=== PATIENT | male | born 1975 | race Two or more races ===

== ENCOUNTER 2024-04-29 23:04 | Inpatient (IN) | payer OTHER ==
[~2024-04-29] VITALS: Ht 193 cm; Wt 118.4 kg
[2024-04-29 23:59] LABS: APPEARANCE,URINE CLEAR (CLEAR); BILIRUBIN,URINE NEGATIVE (NEGATIVE); BLOOD, URINE TRACE-INTA Ery/uL (NEGATIVE); COLOR,URINE YELLOW (YELLOW); KETONES,URINE NEGATIVE (NEGATIVE); LEUKOCYTE ESTERASE ,URINE 1+ (NEGATIVE); NITRITE, URINE POSITIVE (NEGATIVE); PH,URINE 6.5 (5.0-8.0); PROTEIN,URINE NEGATIVE (NEGATIVE); UGLUCOSE NEGATIVE (NEGATIVE)
[2024-04-30 00:03] LABS: BASOPHILS % (AUTO) 0.4 % (0.0-2.0); EOSINOPHILS # (AUTO) 0.2 K/uL (0.0-0.7); EOSINOPHILS % (AUTO) 1.8 % (0.0-6.0); HEMATOCRIT 41 % (39-51); HEMOGLOBIN 13.7 g/dL (13.5-17.5); LYMPHOCYTES # (AUTO) 2.6 K/uL (0.8-4.8); LYMPHOCYTES % (AUTO) 22.4 % (20.0-44.0); MEAN CORPUSCULAR HEMOGLOBIN 31 PG (26.0-33.0); MEAN CORPUSCULAR HGB CONC 33 g/dl (31.0-36.0); MEAN CORPUSCULAR VOLUME 94 fL (80-96); MONOCYTES # (AUTO) 0.7 K/uL (0.1-1.30); MONOCYTES % (AUTO) 6.3 % (2.0-12.0); NEUTROPHILS # (AUTO) 7.9 K/uL (1.8-8.9); NEUTROPHILS % (AUTO) 69.1 % (43.0-81.0); PLATELET COUNT (AUTO) 248 K/uL (150-450); RED BLOOD CELL COUNT(AUTO) 4.36 MIL/uL (4.5-6.0); WHITE BLOOD COUNT (AUTO) 11.4 K/uL (4.3-11.0)
[2024-04-30 00:20] LABS: ADD URINE CULTURE YES; BACTERIA,URINE 2+ /HPF (None Seen); SQUAMOUS EPITHELIAL CELL,UR None Seen /HPF (None Seen); WBC,URINE 21-50 /HPF (0-3)
[2024-04-30 00:28] LABS: CALCIUM, SERUM 8.8 mg/dL (8.5-10.1); CREATININE 0.7 mg/dL (0.6-1.3); POTASSIUM 4.4 mmol/L (3.5-5.1)
[2024-04-30 00:40] LABS: ALBUMIN 3.2 g/dL (3.4-5.0); BILIRUBIN,TOTAL 0.5 mg/dL (0.2-1.0); TOTAL PROTEIN, SERUM 8.5 g/dL (6.4-8.2)
[2024-04-30 02:26] LABS: LACTIC ACID 6.6 mmol/L (0.4-2.0)
[2024-04-30] MEDS ORDERED: CEFTRIAXONE 1GM BAG (ER ONLY) 50 ML IV ONE (02:31)
[2024-04-30] MEDS: IV NS 0.9% 1,000 ML IV ONE ×2 (02:39→03:00)
[2024-04-30] MEDS: CEFTRIAXONE 1GM BAG (ER ONLY) 1 GM/50 ML PIGGYBACK IV ONE (02:39)
[2024-04-30] MEDS ORDERED: MAGNESIUM HYDROXIDE 30 ML UDC PO PRN ×2 (05:30→09:30)
[2024-04-30] MEDS ORDERED: ONDANSETRON HCL/PF 4 MG/2 ML VIAL IVP PRN (05:30)
[2024-04-30] MEDS ORDERED: Z GUARD REMEDY 4 OZ OINT TP PRN (05:30)
[2024-04-30] MEDS ORDERED: MAG HYDROX/AL HYDROX/SIMETH 30 ML UDC PO PRN (05:30)
[2024-04-30 05:40] LABS: BILIRUBIN,DIRECT 0.1 mg/dL (0.0-0.2)
[2024-04-30 05:53] LABS: LACTIC ACID REFLEX 0.4 mmol/L (0.4-1.9)
[2024-04-30] MEDS: IV NS 0.9% 1,000 ML IV PRN (06:56)
[2024-04-30 07:02] LABS: ALBUMIN 3.2 g/dL (3.4-5.0); CALCIUM, SERUM 8.7 mg/dL (8.5-10.1); CREATININE 0.8 mg/dL (0.6-1.3); MAGNESIUM 2.1 mg/dL (1.8-2.4); PHOSPHORUS 3.7 mg/dL (2.5-4.9); POTASSIUM 3.8 mmol/L (3.5-5.1)
[2024-04-30 07:05] LABS: BASOPHILS # (AUTO) 0.1 K/uL (0.0-0.2); BASOPHILS % (AUTO) 0.7 % (0.0-2.0); EOSINOPHILS # (AUTO) 0.3 K/uL (0.0-0.7); EOSINOPHILS % (AUTO) 2.8 % (0.0-6.0); HEMATOCRIT 39 % (39-51); HEMOGLOBIN 13.2 g/dL (13.5-17.5); LYMPHOCYTES # (AUTO) 1.9 K/uL (0.8-4.8); LYMPHOCYTES % (AUTO) 17.8 % (20.0-44.0); MEAN CORPUSCULAR HEMOGLOBIN 31 PG (26.0-33.0); MEAN CORPUSCULAR HGB CONC 34 g/dl (31.0-36.0); MEAN CORPUSCULAR VOLUME 91 fL (80-96); MONOCYTES # (AUTO) 0.8 K/uL (0.1-1.30); MONOCYTES % (AUTO) 7.6 % (2.0-12.0); NEUTROPHILS # (AUTO) 7.6 K/uL (1.8-8.9); NEUTROPHILS % (AUTO) 71.1 % (43.0-81.0); PLATELET COUNT (AUTO) 287 K/uL (150-450); RED BLOOD CELL COUNT(AUTO) 4.24 MIL/uL (4.5-6.0); RED CELL DISTRIBUTION WIDTH 13.8 % (11.5-15.0); WHITE BLOOD COUNT (AUTO) 10.7 K/uL (4.3-11.0)
[2024-04-30 08:00] VITALS: BP 98/55; TEMP 98; O2SAT 95
[2024-04-30] MEDS: PANTOPRAZOLE 40 MG TABLET.DR PO SCH (08:53)
[2024-04-30] MEDS: ACETAMINOPHEN 325 MG TABLET PO PRN (08:54)
[2024-04-30] MEDS ORDERED: ACET325T53 PO (08:55)
[2024-04-30] MEDS ORDERED: HYDR-4303 PO (08:55)
[2024-04-30] MEDS ORDERED: TAMS-12 PO (08:55)
[2024-04-30] MEDS ORDERED: LORA10TA7 PO (08:55)
[2024-04-30] MEDS ORDERED: SENN8.6T19 PO (08:55)
[2024-04-30] MEDS ORDERED: BISA10SU11 RC (08:55)
[2024-04-30] MEDS ORDERED: ACET-637 PO (08:55)
[2024-04-30] MEDS ORDERED: PREG-57 PO (08:55)
[2024-04-30] MEDS ORDERED: NA P133E RC (08:55)
[2024-04-30] MEDS ORDERED: QUET100T PO (08:55)
[2024-04-30] MEDS ORDERED: MAGN400O6 PO (08:55)
[2024-04-30] MEDS ORDERED: TIZA4TAB5 PO (08:55)
[2024-04-30] MEDS ORDERED: CEFTRIAXONE 1 G in IV D5W 50 ML IV SCH (09:00)
[2024-04-30] MEDS: CEFTRIAXONE 2 G in IV D5W 100 ML IV SCH (09:19)
[2024-04-30] MEDS ORDERED: ACETAMINOPHEN 325 MG TABLET PO PRN (09:30)
[2024-04-30] MEDS ORDERED: ACETAMINOPHEN ES 500 MG TABLET PO PRN (09:30)
[2024-04-30] MEDS ORDERED: BISACODYL SUPP (10 MG) 10 MG/SUPP.RECT SUPP.RECT RC PRN (09:30)
[2024-04-30] MEDS ORDERED: NA PHOS,M-B/NA PHOS,DI-BA 1 EA ENEMA RC PRN (09:30)
[2024-04-30 11:10] LABS: THYROID STIMULATING HORMONE 0.84 uIU/mL (0.358-3.74)
[2024-04-30] MEDS ORDERED: CT SWABBABLE VALVE TRANS SET 1 EA INFUS.SET MC ONE (11:34)
[2024-04-30] MEDS ORDERED: IOHEXOL-350 100 ML VIAL IV ONE (11:34)
[2024-04-30] MEDS ORDERED: IV NS 0.9% 250 ML IV ONE (11:35)
[2024-04-30] MEDS: TIZANIDINE HCL 4 MG TABLET PO SCH (13:57)
[2024-04-30 16:13] VITALS: BP 122/81; TEMP 98.1; O2SAT 93
[2024-04-30 20:24] VITALS: BP 105/93; TEMP 98.4; O2SAT 100
[2024-04-30] MEDS: SENNOSIDES 8.6 MG TABLET PO SCH (21:28)
[2024-04-30] MEDS: ENOXAPARIN SODIUM 40 MG/0.4 ML DISP.SYRIN SQ SCH (22:41)
[2024-05-01 07:06] LABS: BASOPHILS # (AUTO) 0.1 K/uL (0.0-0.2); BASOPHILS % (AUTO) 0.6 % (0.0-2.0); EOSINOPHILS # (AUTO) 0.4 K/uL (0.0-0.7); EOSINOPHILS % (AUTO) 3.6 % (0.0-6.0); HEMATOCRIT 39 % (39-51); HEMOGLOBIN 12.9 g/dL (13.5-17.5); LYMPHOCYTES # (AUTO) 1.9 K/uL (0.8-4.8); MEAN CORPUSCULAR HEMOGLOBIN 31 PG (26.0-33.0); MEAN CORPUSCULAR HGB CONC 34 g/dl (31.0-36.0); MEAN CORPUSCULAR VOLUME 91 fL (80-96); MONOCYTES # (AUTO) 0.6 K/uL (0.1-1.30); MONOCYTES % (AUTO) 5.6 % (2.0-12.0); NEUTROPHILS # (AUTO) 7.5 K/uL (1.8-8.9); NEUTROPHILS % (AUTO) 72.2 % (43.0-81.0); PLATELET COUNT (AUTO) 297 K/uL (150-450); RED BLOOD CELL COUNT(AUTO) 4.24 MIL/uL (4.5-6.0); RED CELL DISTRIBUTION WIDTH 13.7 % (11.5-15.0); WHITE BLOOD COUNT (AUTO) 10.4 K/uL (4.3-11.0)
[2024-05-01 07:30] VITALS: BP 148/113; TEMP 98.1; O2SAT 96
[2024-05-01 07:31] LABS: CALCIUM, SERUM 9.1 mg/dL (8.5-10.1); CREATININE 0.7 mg/dL (0.6-1.3); PHOSPHORUS 3.3 mg/dL (2.5-4.9); POTASSIUM 3.7 mmol/L (3.5-5.1)
[2024-05-01 08:11] LABS: FOLIC ACID 11.9 ng/mL (>3.0)
[2024-05-01] MEDS: TAMSULOSIN 0.4 MG CAP.SR.24H PO SCH (08:26)
[2024-05-01] MEDS: LORATADINE 10 MG TABLET PO SCH (08:26)
[2024-05-01 16:00] VITALS: BP 130/81; TEMP 98.2; O2SAT 95
[2024-05-01 21:45] VITALS: BP 137/88; TEMP 98.6; O2SAT 94
[2024-05-02 06:24] LABS: BASOPHILS # (AUTO) 0.1 K/uL (0.0-0.2); BASOPHILS % (AUTO) 0.7 % (0.0-2.0); EOSINOPHILS # (AUTO) 0.5 K/uL (0.0-0.7); EOSINOPHILS % (AUTO) 6.6 % (0.0-6.0); HEMATOCRIT 37 % (39-51); HEMOGLOBIN 12.6 g/dL (13.5-17.5); LYMPHOCYTES # (AUTO) 1.8 K/uL (0.8-4.8); LYMPHOCYTES % (AUTO) 25.7 % (20.0-44.0); MEAN CORPUSCULAR HEMOGLOBIN 31 PG (26.0-33.0); MEAN CORPUSCULAR HGB CONC 35 g/dl (31.0-36.0); MEAN CORPUSCULAR VOLUME 91 fL (80-96); MONOCYTES # (AUTO) 0.6 K/uL (0.1-1.30); NEUTROPHILS # (AUTO) 4.1 K/uL (1.8-8.9); PLATELET COUNT (AUTO) 305 K/uL (150-450); RED BLOOD CELL COUNT(AUTO) 4.04 MIL/uL (4.5-6.0); RED CELL DISTRIBUTION WIDTH 13.7 % (11.5-15.0)
[2024-05-02 06:51] LABS: CALCIUM, SERUM 8.9 mg/dL (8.5-10.1); POTASSIUM 3.4 mmol/L (3.5-5.1)
[2024-05-02 06:58] LABS: CREATININE 0.7 mg/dL (0.6-1.3)
[2024-05-02 08:00] VITALS: BP 140/116; TEMP 98.6; O2SAT 96
[2024-05-02] MEDS: HYDROCODONE/APAP 5/325MG TABLET PO PRN (08:24)
[2024-05-02] MEDS: POTASSIUM CHLORIDE 20 MEQ TAB.PRT.SR PO ONE (10:56)
[2024-05-02 13:21] VITALS: BP 123/97; TEMP 97.5; O2SAT 96
[2024-05-02 14:57] LABS: CHOLESTEROL 206 mg/dL (<200); HDL CHOLESTEROL 36 mg/dL (40-60); LDL 154 mg/dL (0-99); TRIGLYCERIDES 83 mg/dL (30-150)
[2024-05-02] MEDS: CYANOCOBALAMIN 1,000 MCG/ML VIAL IM SCH (15:13)
[2024-05-02 16:00] VITALS: BP 137/97; TEMP 98.2; O2SAT 96
[2024-05-02 20:00] VITALS: BP 150/101; TEMP 97.9; O2SAT 95
[2024-05-03 06:18] LABS: BASOPHILS # (AUTO) 0.1 K/uL (0.0-0.2); BASOPHILS % (AUTO) 0.8 % (0.0-2.0); EOSINOPHILS # (AUTO) 0.4 K/uL (0.0-0.7); EOSINOPHILS % (AUTO) 5.1 % (0.0-6.0); HEMATOCRIT 38 % (39-51); HEMOGLOBIN 13.2 g/dL (13.5-17.5); LYMPHOCYTES % (AUTO) 25.7 % (20.0-44.0); MEAN CORPUSCULAR HEMOGLOBIN 31 PG (26.0-33.0); MEAN CORPUSCULAR HGB CONC 35 g/dl (31.0-36.0); MEAN CORPUSCULAR VOLUME 90 fL (80-96); MONOCYTES # (AUTO) 0.6 K/uL (0.1-1.30); MONOCYTES % (AUTO) 7.1 % (2.0-12.0); NEUTROPHILS # (AUTO) 4.7 K/uL (1.8-8.9); NEUTROPHILS % (AUTO) 61.3 % (43.0-81.0); PLATELET COUNT (AUTO) 319 K/uL (150-450); RED BLOOD CELL COUNT(AUTO) 4.26 MIL/uL (4.5-6.0); RED CELL DISTRIBUTION WIDTH 13.9 % (11.5-15.0); WHITE BLOOD COUNT (AUTO) 7.8 K/uL (4.3-11.0)
[2024-05-03 06:44] LABS: CALCIUM, SERUM 9.4 mg/dL (8.5-10.1); CREATININE 0.7 mg/dL (0.6-1.3); POTASSIUM 3.6 mmol/L (3.5-5.1)
[2024-05-03 08:00] VITALS: BP 149/110; TEMP 98.1; O2SAT 95
[2024-05-03] MEDS ORDERED: CEFT2VIA14 IV (09:13)
[2024-05-04 15:13] LABS: VITAMIN B1 THIAMINE,WB 125.1 nmol/L (66.5-200.0)
== END 2024-05-03 14:46 | DRG 463 ==
LOC: ER 23:06 → MED 04-30 04:00
PROVIDERS: ADMIT Internal Medicine; ATTEND Internal Medicine
DX: N12 Tubulo-interstitial nephritis, not specified as acute or chronic (principal); G93.41 Metabolic encephalopathy; E43 Unspecified severe protein-calorie malnutrition; G82.20 Paraplegia, unspecified; E87.20 Acidosis, unspecified; G91.9 Hydrocephalus, unspecified; E86.0 Dehydration; N40.0 Benign prostatic hyperplasia without lower urinary tract symptoms; Z86.73 Personal history of transient ischemic attack (TIA), and cerebral infarction without residual deficits; N39.0 Urinary tract infection, site not specified; Z20.822 Contact with and (suspected) exposure to COVID-19; Z86.61 Personal history of infections of the central nervous system; F29 Unspecified psychosis not due to a substance or known physiological condition; E88.09 Other disorders of plasma-protein metabolism, not elsewhere classified; R23.8 Other skin changes; Z98.2 Presence of cerebrospinal fluid drainage device; B96.20 Unspecified Escherichia coli [E. coli] as the cause of diseases classified elsewhere; Z79.899 Other long term (current) drug therapy
CPT/HCPCS: 36415; 70450-TC; 70496-TC; 70498-TC; 71045-TC; 80048-TC; 80053-TC; 80061-TC; 81001; 82040-TC; 82248-TC; 82607-TC; 83605-TC; 83735-TC; 83880; 83921; 84100-TC; 84425; 84443-TC; 84484-TC; 85025-TC; 87040-TC; 87081-TC; 87086-TC; A4223; G0378; J0696; J1650; J3420; J7030; J7050; J7060; Q9967

== ENCOUNTER 2024-05-23 16:32 | Inpatient (IN) | payer OTHER ==
[~2024-05-23] VITALS: Ht 182.9 cm; Wt 110.7 kg
[~2024-05-23 16:32] MED LIST: ACET-637 PO; ACET325T53 PO; BISA10SU11 RC; CEFE1VIA3 IV; CEFT2VIA14 IV; GENT5DRO23 RIGHTEYE; HYDR-4303 PO; LINE600T12 PO; LORA10TA7 PO; MAGN400O6 PO; NA P133E RC; PREG-57 PO; SENN8.6T19 PO; TAMS-12 PO; TIZA4TAB5 PO
[2024-05-23 18:22] LABS: CALCIUM, SERUM 9.8 mg/dL (8.5-10.1); CREATININE 0.8 mg/dL (0.6-1.3); POTASSIUM 4.8 mmol/L (3.5-5.1)
[2024-05-23 18:28] LABS: LACTIC ACID 1.1 mmol/L (0.4-2.0)
[2024-05-23 18:35] LABS: ALBUMIN 3.9 g/dL (3.4-5.0); BILIRUBIN,TOTAL 0.6 mg/dL (0.2-1.0); TOTAL PROTEIN, SERUM 9.2 g/dL (6.4-8.2)
[2024-05-23 18:37] LABS: APPEARANCE,URINE CLEAR (CLEAR); BILIRUBIN,URINE NEGATIVE (NEGATIVE); BLOOD, URINE TRACE-INTA Ery/uL (NEGATIVE); COLOR,URINE YELLOW (YELLOW); KETONES,URINE NEGATIVE (NEGATIVE); LEUKOCYTE ESTERASE ,URINE NEGATIVE (NEGATIVE); NITRITE, URINE NEGATIVE (NEGATIVE); PROTEIN,URINE NEGATIVE (NEGATIVE); UGLUCOSE NEGATIVE (NEGATIVE); UROBILINOGEN,URINE 0.2 EU/dL (0.2)
[2024-05-23] MEDS ORDERED: ONDA-97 PO (18:47)
[2024-05-23] MEDS ORDERED: MAG30ORA PO (18:47)
[2024-05-23] MEDS ORDERED: MEGE400O5 PO (18:47)
[2024-05-23 18:50] LABS: BASOPHILS # (AUTO) 0.1 K/uL (0.0-0.2); BASOPHILS % (AUTO) 0.4 % (0.0-2.0); EOSINOPHILS # (AUTO) 0.3 K/uL (0.0-0.7); EOSINOPHILS % (AUTO) 2.1 % (0.0-6.0); HEMATOCRIT 45 % (39-51); HEMOGLOBIN 15.3 g/dL (13.5-17.5); MEAN CORPUSCULAR HEMOGLOBIN 31 PG (26.0-33.0); MEAN CORPUSCULAR HGB CONC 34 g/dl (31.0-36.0); MEAN CORPUSCULAR VOLUME 92 fL (80-96); MONOCYTES # (AUTO) 0.6 K/uL (0.1-1.30); MONOCYTES % (AUTO) 4.1 % (2.0-12.0); NEUTROPHILS # (AUTO) 11.5 K/uL (1.8-8.9); NEUTROPHILS % (AUTO) 79.4 % (43.0-81.0); RED BLOOD CELL COUNT(AUTO) 4.92 MIL/uL (4.5-6.0); RED CELL DISTRIBUTION WIDTH 13.8 % (11.5-15.0); WHITE BLOOD COUNT (AUTO) 14.4 K/uL (4.3-11.0)
[2024-05-23 18:52] LABS: ADD URINE CULTURE NO; BACTERIA,URINE 1+ /HPF (None Seen)
[2024-05-23 19:05] LABS: PLATELET COUNT (AUTO) 232 K/uL (150-450)
[2024-05-23] MEDS ORDERED: CEFTRIAXONE 1GM BAG (ER ONLY) 50 ML IV ONE (19:33)
[2024-05-23] MEDS: IV NS 0.9% 1,000 ML IV ONE (19:40)
[2024-05-23] MEDS: CEFTRIAXONE 1 G in IV D5W 50 ML IV ONE (19:40)
[2024-05-23] MEDS ORDERED: BISACODYL SUPP (10 MG) 10 MG/SUPP.RECT SUPP.RECT RC PRN (21:00)
[2024-05-23] MEDS ORDERED: CEFEPIME 2 GM in IV D5W 100 ML IV SCH (21:00)
[2024-05-23] MEDS ORDERED: ONDANSETRON HCL/PF 4 MG/2 ML VIAL IVP PRN (21:00)
[2024-05-23] MEDS ORDERED: MAG HYDROX/AL HYDROX/SIMETH 30 ML UDC PO PRN (21:00)
[2024-05-23] MEDS ORDERED: NA PHOS,M-B/NA PHOS,DI-BA 1 EA ENEMA RC PRN (21:00)
[2024-05-23] MEDS ORDERED: ACETAMINOPHEN 325 MG TABLET PO PRN (21:00)
[2024-05-23] MEDS ORDERED: MAGNESIUM HYDROXIDE 30 ML UDC PO PRN (21:00)
[2024-05-23] MEDS: IV NS 0.9% 1,000 ML IV SCH (22:26)
[2024-05-23] MEDS ORDERED: CEFEPIME 1 GM VIAL ONE (23:04)
[2024-05-23] MEDS: TIZANIDINE HCL 4 MG TABLET PO SCH (23:10)
[2024-05-23] MEDS: SENNOSIDES 8.6 MG TABLET PO SCH (23:11)
[2024-05-23] MEDS: ENOXAPARIN SODIUM 40 MG/0.4 ML DISP.SYRIN SQ SCH (23:12)
[2024-05-23] MEDS: CEFEPIME 2 GM in IV NS 0.9% 100 ML IV ONE (23:16)
[2024-05-24 04:00] VITALS: BP 124/83; TEMP 98.3; O2SAT 98
[2024-05-24] MEDS: HYDROCODONE/APAP 5/325MG TABLET PO PRN (05:40)
[2024-05-24 06:37] LABS: BASOPHILS # (AUTO) 0.1 K/uL (0.0-0.2); BASOPHILS % (AUTO) 0.8 % (0.0-2.0); EOSINOPHILS # (AUTO) 0.3 K/uL (0.0-0.7); EOSINOPHILS % (AUTO) 3.7 % (0.0-6.0); HEMATOCRIT 42 % (39-51); LYMPHOCYTES # (AUTO) 1.6 K/uL (0.8-4.8); MEAN CORPUSCULAR HEMOGLOBIN 31 PG (26.0-33.0); MEAN CORPUSCULAR HGB CONC 33 g/dl (31.0-36.0); MEAN CORPUSCULAR VOLUME 92 fL (80-96); MONOCYTES # (AUTO) 0.5 K/uL (0.1-1.30); MONOCYTES % (AUTO) 5.3 % (2.0-12.0); NEUTROPHILS # (AUTO) 6.6 K/uL (1.8-8.9); NEUTROPHILS % (AUTO) 72.2 % (43.0-81.0); PLATELET COUNT (AUTO) 255 K/uL (150-450); RED BLOOD CELL COUNT(AUTO) 4.56 MIL/uL (4.5-6.0); RED CELL DISTRIBUTION WIDTH 13.8 % (11.5-15.0); WHITE BLOOD COUNT (AUTO) 9.1 K/uL (4.3-11.0)
[2024-05-24 06:42] LABS: CALCIUM, SERUM 9.5 mg/dL (8.5-10.1); CREATININE 0.9 mg/dL (0.6-1.3); PHOSPHORUS 3.6 mg/dL (2.5-4.9); POTASSIUM 3.4 mmol/L (3.5-5.1)
[2024-05-24 07:00] VITALS: BP 124/83; TEMP 98.6; O2SAT 97
[2024-05-24] MEDS: LORATADINE 10 MG TABLET PO SCH (08:36)
[2024-05-24] MEDS: TAMSULOSIN 0.4 MG CAP.SR.24H PO SCH (08:36)
[2024-05-24] MEDS: MEGESTROL ACETATE SUSP 400 MG/10 ML UDC PO SCH (08:36)
[2024-05-24] MEDS ORDERED: CEFEPIME 1 GM in IV D5W 50 ML IV SCH (09:00)
[2024-05-24] MEDS: POTASSIUM CHLORIDE 20 MEQ TAB.PRT.SR PO ONE (09:47)
[2024-05-24] MEDS: CEFEPIME 1 GM in IV D5W 50 ML IV SCH (10:36)
[2024-05-24] MEDS: Z GUARD REMEDY 4 OZ OINT TP PRN (13:35)
[2024-05-24 16:00] VITALS: BP 136/117; TEMP 98.8; O2SAT 98
[2024-05-24 16:10] VITALS: BP 146/98; O2SAT 98
[2024-05-24] MEDS: FLUCONAZOLE (100 MG) 100 MG TABLET PO SCH (16:16)
[2024-05-24] MEDS: IV NS 0.9% 1,000 ML IV PRN (18:40)
[2024-05-24 20:33] VITALS: BP 150/106; TEMP 98.2; O2SAT 97
[2024-05-24] MEDS: ATORVASTATIN 40 MG TABLET PO SCH (22:21)
[2024-05-25 04:11] VITALS: BP 150/106; TEMP 98.2; O2SAT 97
[2024-05-25 06:29] LABS: BASOPHILS # (AUTO) 0.1 K/uL (0.0-0.2); BASOPHILS % (AUTO) 0.6 % (0.0-2.0); EOSINOPHILS # (AUTO) 0.4 K/uL (0.0-0.7); EOSINOPHILS % (AUTO) 3.6 % (0.0-6.0); HEMATOCRIT 41 % (39-51); HEMOGLOBIN 13.7 g/dL (13.5-17.5); LYMPHOCYTES # (AUTO) 2.9 K/uL (0.8-4.8); LYMPHOCYTES % (AUTO) 27.5 % (20.0-44.0); MEAN CORPUSCULAR HEMOGLOBIN 31 PG (26.0-33.0); MEAN CORPUSCULAR HGB CONC 34 g/dl (31.0-36.0); MEAN CORPUSCULAR VOLUME 92 fL (80-96); MONOCYTES # (AUTO) 0.5 K/uL (0.1-1.30); MONOCYTES % (AUTO) 5.1 % (2.0-12.0); NEUTROPHILS # (AUTO) 6.6 K/uL (1.8-8.9); NEUTROPHILS % (AUTO) 63.2 % (43.0-81.0); PLATELET COUNT (AUTO) 243 K/uL (150-450); RED BLOOD CELL COUNT(AUTO) 4.44 MIL/uL (4.5-6.0); RED CELL DISTRIBUTION WIDTH 13.7 % (11.5-15.0); WHITE BLOOD COUNT (AUTO) 10.4 K/uL (4.3-11.0)
[2024-05-25 06:54] LABS: CALCIUM, SERUM 9.7 mg/dL (8.5-10.1); CREATININE 0.7 mg/dL (0.6-1.3); POTASSIUM 3.9 mmol/L (3.5-5.1)
[2024-05-25 08:00] VITALS: BP 150/100; TEMP 98.4; O2SAT 96
[2024-05-25] MEDS: ASPIRIN 81 MG TAB.CHEW PO SCH (09:56)
[2024-05-25] MEDS ORDERED: AMPHOTERICIN B IV SCH ×3 (15:00→20:00)
[2024-05-25] MEDS ORDERED: D5W IV SCH ×3 (15:00→20:00)
[2024-05-25 16:00] VITALS: BP 120/93; TEMP 98.6; O2SAT 98
[2024-05-25] MEDS: D5W IV ONE (17:49)
[2024-05-25] MEDS: AMPHOTERICIN B LIPOSOME IV ONE (17:49)
[2024-05-25 20:00] VITALS: BP 152/102; TEMP 97.7; O2SAT 98
[2024-05-25 20:01] VITALS: BP 152/102; TEMP 97.7; O2SAT 98
[2024-05-26 00:59] LABS: HIV-1 p24 ANTIGEN NON REACTIVE (NONREACTIVE); HIV-1/2 ANTIBODY NON REACTIVE (NONREACTIVE)
[2024-05-26 06:34] LABS: BASOPHILS # (AUTO) 0.1 K/uL (0.0-0.2); BASOPHILS % (AUTO) 0.5 % (0.0-2.0); EOSINOPHILS # (AUTO) 0.3 K/uL (0.0-0.7); EOSINOPHILS % (AUTO) 3.2 % (0.0-6.0); HEMATOCRIT 40 % (39-51); HEMOGLOBIN 13.4 g/dL (13.5-17.5); LYMPHOCYTES # (AUTO) 2.8 K/uL (0.8-4.8); LYMPHOCYTES % (AUTO) 26.9 % (20.0-44.0); MEAN CORPUSCULAR HEMOGLOBIN 31 PG (26.0-33.0); MEAN CORPUSCULAR HGB CONC 34 g/dl (31.0-36.0); MEAN CORPUSCULAR VOLUME 91 fL (80-96); MONOCYTES # (AUTO) 0.6 K/uL (0.1-1.30); MONOCYTES % (AUTO) 5.6 % (2.0-12.0); NEUTROPHILS # (AUTO) 6.7 K/uL (1.8-8.9); NEUTROPHILS % (AUTO) 63.8 % (43.0-81.0); PLATELET COUNT (AUTO) 244 K/uL (150-450); RED BLOOD CELL COUNT(AUTO) 4.38 MIL/uL (4.5-6.0); RED CELL DISTRIBUTION WIDTH 13.4 % (11.5-15.0); WHITE BLOOD COUNT (AUTO) 10.5 K/uL (4.3-11.0)
[2024-05-26 07:31] LABS: MAGNESIUM 1.9 mg/dL (1.8-2.4); PHOSPHORUS 3.6 mg/dL (2.5-4.9)
[2024-05-26 07:34] LABS: CALCIUM, SERUM 10.1 mg/dL (8.5-10.1); CREATININE 0.8 mg/dL (0.6-1.3); POTASSIUM 3.6 mmol/L (3.5-5.1)
[2024-05-26 08:00] VITALS: BP 155/101; TEMP 98.2; O2SAT 97
[2024-05-26] MEDS: IV NS 0.9% 500 ML IV ONE (11:31)
[2024-05-26] MEDS: AMPHOTERICIN B LIPOSOME IV SCH (12:55)
[2024-05-26] MEDS: D5W IV SCH (12:55)
[2024-05-26 16:00] VITALS: BP 132/87; TEMP 98.1; O2SAT 98
[2024-05-26 20:00] VITALS: BP 141/98; TEMP 98.8; O2SAT 96
[2024-05-27 06:38] LABS: BASOPHILS # (AUTO) 0.1 K/uL (0.0-0.2); BASOPHILS % (AUTO) 0.5 % (0.0-2.0); EOSINOPHILS # (AUTO) 0.3 K/uL (0.0-0.7); HEMATOCRIT 40 % (39-51); HEMOGLOBIN 13.4 g/dL (13.5-17.5); LYMPHOCYTES # (AUTO) 2.6 K/uL (0.8-4.8); LYMPHOCYTES % (AUTO) 22.5 % (20.0-44.0); MEAN CORPUSCULAR HEMOGLOBIN 31 PG (26.0-33.0); MEAN CORPUSCULAR HGB CONC 34 g/dl (31.0-36.0); MEAN CORPUSCULAR VOLUME 90 fL (80-96); MONOCYTES # (AUTO) 0.9 K/uL (0.1-1.30); MONOCYTES % (AUTO) 7.5 % (2.0-12.0); NEUTROPHILS # (AUTO) 7.7 K/uL (1.8-8.9); NEUTROPHILS % (AUTO) 66.5 % (43.0-81.0); PLATELET COUNT (AUTO) 262 K/uL (150-450); RED BLOOD CELL COUNT(AUTO) 4.39 MIL/uL (4.5-6.0); RED CELL DISTRIBUTION WIDTH 13.7 % (11.5-15.0); WHITE BLOOD COUNT (AUTO) 11.5 K/uL (4.3-11.0)
[2024-05-27 07:06] LABS: CALCIUM, SERUM 9.2 mg/dL (8.5-10.1); CREATININE 0.7 mg/dL (0.6-1.3); MAGNESIUM 1.9 mg/dL (1.8-2.4); PHOSPHORUS 4.2 mg/dL (2.5-4.9); POTASSIUM 3.4 mmol/L (3.5-5.1)
[2024-05-27 08:00] VITALS: BP 141/100; TEMP 99.5; O2SAT 98
[2024-05-27] MEDS: POTASSIUM CHLORIDE 20 MEQ TAB.PRT.SR PO SCH (09:51)
[2024-05-27 11:28] LABS: INR 1.08 (0.91-1.10); PARTIAL THROMBOPLASTIN TIME 26.2 SEC (24.3-34.3); PROTHROMBIN TIME 11.4 SECS (9.2-11.1)
[2024-05-27] MEDS: AMOXICILLIN TRIHYDRATE 250 MG CAPSULE PO SCH (14:22)
[2024-05-27 16:00] VITALS: BP 133/85; TEMP 99.5; O2SAT 100
[2024-05-27 20:00] VITALS: BP 145/75; TEMP 99; O2SAT 98
[2024-05-28 06:37] LABS: BASOPHILS # (AUTO) 0.1 K/uL (0.0-0.2); BASOPHILS % (AUTO) 0.4 % (0.0-2.0); EOSINOPHILS # (AUTO) 0.4 K/uL (0.0-0.7); EOSINOPHILS % (AUTO) 2.7 % (0.0-6.0); HEMATOCRIT 43 % (39-51); HEMOGLOBIN 14.2 g/dL (13.5-17.5); LYMPHOCYTES # (AUTO) 3.2 K/uL (0.8-4.8); LYMPHOCYTES % (AUTO) 24.3 % (20.0-44.0); MEAN CORPUSCULAR HEMOGLOBIN 31 PG (26.0-33.0); MEAN CORPUSCULAR HGB CONC 33 g/dl (31.0-36.0); MEAN CORPUSCULAR VOLUME 94 fL (80-96); MONOCYTES % (AUTO) 7.5 % (2.0-12.0); NEUTROPHILS # (AUTO) 8.7 K/uL (1.8-8.9); NEUTROPHILS % (AUTO) 65.1 % (43.0-81.0); PLATELET COUNT (AUTO) 253 K/uL (150-450); RED BLOOD CELL COUNT(AUTO) 4.61 MIL/uL (4.5-6.0); RED CELL DISTRIBUTION WIDTH 13.9 % (11.5-15.0); WHITE BLOOD COUNT (AUTO) 13.3 K/uL (4.3-11.0)
[2024-05-28 06:43] LABS: CALCIUM, SERUM 9.6 mg/dL (8.5-10.1); CREATININE 0.9 mg/dL (0.6-1.3); MAGNESIUM 2.3 mg/dL (1.8-2.4); PHOSPHORUS 4.5 mg/dL (2.5-4.9); POTASSIUM 3.9 mmol/L (3.5-5.1)
[2024-05-28 07:46] LABS: ALBUMIN 3.5 g/dL (3.4-5.0); BILIRUBIN,TOTAL 0.4 mg/dL (0.2-1.0); TOTAL PROTEIN, SERUM 8.6 g/dL (6.4-8.2)
[2024-05-28 08:00] VITALS: BP 136/91; TEMP 98.2; O2SAT 100
[2024-05-28 08:24] LABS: BILIRUBIN,DIRECT 0.1 mg/dL (0.0-0.2)
[2024-05-28 16:00] VITALS: BP 128/81; TEMP 98.1; TEMP 99.9; O2SAT 97
[2024-05-28] MEDS: CEFTRIAXONE 1 G in IV D5W 50 ML IV SCH (18:07)
[2024-05-28 21:28] VITALS: BP 144/111; TEMP 99; O2SAT 96
[2024-05-29 08:00] VITALS: BP 138/80; TEMP 98.8; O2SAT 94
[2024-05-29 08:08] LABS: BASOPHILS # (AUTO) 0.1 K/uL (0.0-0.2); BASOPHILS % (AUTO) 0.6 % (0.0-2.0); EOSINOPHILS # (AUTO) 0.4 K/uL (0.0-0.7); EOSINOPHILS % (AUTO) 3.2 % (0.0-6.0); HEMATOCRIT 42 % (39-51); HEMOGLOBIN 13.8 g/dL (13.5-17.5); LYMPHOCYTES # (AUTO) 2.9 K/uL (0.8-4.8); LYMPHOCYTES % (AUTO) 24.9 % (20.0-44.0); MEAN CORPUSCULAR HEMOGLOBIN 30 PG (26.0-33.0); MEAN CORPUSCULAR HGB CONC 33 g/dl (31.0-36.0); MEAN CORPUSCULAR VOLUME 91 fL (80-96); MONOCYTES # (AUTO) 0.7 K/uL (0.1-1.30); MONOCYTES % (AUTO) 5.8 % (2.0-12.0); NEUTROPHILS # (AUTO) 7.6 K/uL (1.8-8.9); NEUTROPHILS % (AUTO) 65.5 % (43.0-81.0); PLATELET COUNT (AUTO) 298 K/uL (150-450); RED BLOOD CELL COUNT(AUTO) 4.57 MIL/uL (4.5-6.0); WHITE BLOOD COUNT (AUTO) 11.6 K/uL (4.3-11.0)
[2024-05-29 09:11] LABS: CALCIUM, SERUM 9.6 mg/dL (8.5-10.1); MAGNESIUM 1.9 mg/dL (1.8-2.4); PHOSPHORUS 4.1 mg/dL (2.5-4.9); POTASSIUM 3.2 mmol/L (3.5-5.1)
[2024-05-29] MEDS: AMOXICILLIN TRIHYDRATE 250 MG CAPSULE PO SCH (12:56)
[2024-05-29 15:59] VITALS: BP 149/98; TEMP 98.2; O2SAT 96
[2024-05-29] MEDS: POTASSIUM CHLORIDE 20 MEQ TAB.PRT.SR PO ONE (16:03)
[2024-05-29 16:11] LABS: CSF GLUCOSE 60 mg/dL (40-70)
[2024-05-29 16:41] LABS: CSF PROTEIN 192.93 mg/dL (15-45)
[2024-05-29 19:12] LABS: CSF APPEARANCE CLEAR (CLEAR); CSF COLOR COLORLESS (COLORLESS); CSF VOLUME 9.3 mL
[2024-05-29 19:13] LABS: CSF WHITE BLOOD CELL COUNT 3 /cumm (0-5); CSF WHITE BLOOD CELL COUNT 9 /cumm (0-5)
[2024-05-29 20:00] VITALS: BP_SYST 144; BP_DIAS 122; BP_DIAS 98; BP_DIAS 99; TEMP 99.1; O2SAT 96
[2024-05-30 06:42] LABS: BASOPHILS % (AUTO) 0.4 % (0.0-2.0); EOSINOPHILS # (AUTO) 0.3 K/uL (0.0-0.7); EOSINOPHILS % (AUTO) 2.4 % (0.0-6.0); HEMATOCRIT 39 % (39-51); HEMOGLOBIN 12.9 g/dL (13.5-17.5); LYMPHOCYTES # (AUTO) 2.8 K/uL (0.8-4.8); LYMPHOCYTES % (AUTO) 23.2 % (20.0-44.0); MEAN CORPUSCULAR HEMOGLOBIN 30 PG (26.0-33.0); MEAN CORPUSCULAR HGB CONC 34 g/dl (31.0-36.0); MEAN CORPUSCULAR VOLUME 90 fL (80-96); MONOCYTES # (AUTO) 0.8 K/uL (0.1-1.30); MONOCYTES % (AUTO) 6.5 % (2.0-12.0); NEUTROPHILS # (AUTO) 8.1 K/uL (1.8-8.9); NEUTROPHILS % (AUTO) 67.5 % (43.0-81.0); PLATELET COUNT (AUTO) 270 K/uL (150-450); RED BLOOD CELL COUNT(AUTO) 4.27 MIL/uL (4.5-6.0); RED CELL DISTRIBUTION WIDTH 13.6 % (11.5-15.0)
[2024-05-30 06:58] LABS: CALCIUM, SERUM 9.3 mg/dL (8.5-10.1); CREATININE 1.6 mg/dL (0.6-1.3); MAGNESIUM 1.7 mg/dL (1.8-2.4); POTASSIUM 3.3 mmol/L (3.5-5.1)
[2024-05-30 07:30] VITALS: BP 137/112; TEMP 98.2; O2SAT 100
[2024-05-30] MEDS ORDERED: AMPHOTERICIN B LIPOSOME IV SCH (11:00)
[2024-05-30] MEDS ORDERED: D5W IV SCH (11:00)
[2024-05-30] MEDS ORDERED: IV NS 0.9% 1,000 ML IV PRN (11:30)
[2024-05-30] MEDS ORDERED: IV LR 500 ML IV SCH (11:30)
[2024-05-30] MEDS: IV LR 500 ML IV PRN (11:40)
[2024-05-30] MEDS: POTASSIUM CHLORIDE 10 MEQ TABLET.SA PO ONE (12:03)
[2024-05-30] MEDS: MAGNESIUM OXIDE 400 MG TABLET PO ONE (12:03)
[2024-05-30] MEDS: AMPHOTERICIN B LIPOSOME IV SCH (12:04)
[2024-05-30] MEDS: D5W IV SCH (12:04)
[2024-05-30] MEDS: IV 1/2NS 1000 ML 1,000 ML IV SCH (12:25)
[2024-05-30 14:58] LABS: APPEARANCE,URINE CLEAR (CLEAR); BILIRUBIN,URINE NEGATIVE (NEGATIVE); BLOOD, URINE TRACE-INTA Ery/uL (NEGATIVE); COLOR,URINE YELLOW (YELLOW); CREATININE, URINE 72.9 MG/DL (30.0-125.0); KETONES,URINE NEGATIVE (NEGATIVE); LEUKOCYTE ESTERASE ,URINE NEGATIVE (NEGATIVE); NITRITE, URINE NEGATIVE (NEGATIVE); PH,URINE 6.5 (5.0-8.0); PROTEIN,URINE NEGATIVE (NEGATIVE); UGLUCOSE NEGATIVE (NEGATIVE); URINE TOTAL PROTEIN 35.2 mg/dL (0-11.9); UROBILINOGEN,URINE 0.2 EU/dL (0.2)
[2024-05-30 15:02] LABS: ADD URINE CULTURE YES; BACTERIA,URINE Few /HPF (None Seen); HYALINE CASTS, URINE Moderate /LPF (None Seen); SQUAMOUS EPITHELIAL CELL,UR 0-2 /HPF (None Seen)
[2024-05-30 15:24] LABS: EOSINOPHIL,URINE None Seen
[2024-05-30] MEDS: hydrALAZINE HCL 25 MG TABLET PO PRN (16:05)
[2024-05-30 16:39] VITALS: BP 172/114; TEMP 97.7; O2SAT 100
[2024-05-30 20:00] VITALS: BP 125/95; TEMP 98.8; O2SAT 99
[2024-05-31 06:36] LABS: BASOPHILS # (AUTO) 0.1 K/uL (0.0-0.2); BASOPHILS % (AUTO) 0.5 % (0.0-2.0); EOSINOPHILS # (AUTO) 0.3 K/uL (0.0-0.7); EOSINOPHILS % (AUTO) 2.6 % (0.0-6.0); HEMATOCRIT 39 % (39-51); HEMOGLOBIN 13.1 g/dL (13.5-17.5); LYMPHOCYTES # (AUTO) 2.4 K/uL (0.8-4.8); LYMPHOCYTES % (AUTO) 21.1 % (20.0-44.0); MEAN CORPUSCULAR HEMOGLOBIN 30 PG (26.0-33.0); MEAN CORPUSCULAR HGB CONC 34 g/dl (31.0-36.0); MEAN CORPUSCULAR VOLUME 90 fL (80-96); MONOCYTES # (AUTO) 0.8 K/uL (0.1-1.30); NEUTROPHILS # (AUTO) 7.9 K/uL (1.8-8.9); NEUTROPHILS % (AUTO) 68.8 % (43.0-81.0); PLATELET COUNT (AUTO) 263 K/uL (150-450); RED BLOOD CELL COUNT(AUTO) 4.33 MIL/uL (4.5-6.0); RED CELL DISTRIBUTION WIDTH 13.6 % (11.5-15.0); WHITE BLOOD COUNT (AUTO) 11.5 K/uL (4.3-11.0)
[2024-05-31 06:48] LABS: CALCIUM, SERUM 9.3 mg/dL (8.5-10.1); CREATININE 1.6 mg/dL (0.6-1.3); MAGNESIUM 1.5 mg/dL (1.8-2.4); PHOSPHORUS 4.7 mg/dL (2.5-4.9)
[2024-05-31 07:30] VITALS: BP 157/112; TEMP 99; O2SAT 100
[2024-05-31 08:00] VITALS: BP 137/64; TEMP 98.4; O2SAT 100
[2024-05-31] MEDS ORDERED: POTASSIUM CHLORIDE 10 MEQ TABLET.SA PO ONE (10:00)
[2024-05-31] MEDS: MAGNESIUM OXIDE 400 MG TABLET PO ONE (10:59)
[2024-05-31] MEDS ORDERED: POTASSIUM CHLORIDE 20 MEQ TAB.PRT.SR PO SCH (11:00)
[2024-05-31] MEDS: POTASSIUM CHLORIDE 20 MEQ POWDER PACKET PO SCH (11:00)
[2024-05-31] MEDS: POTASSIUM CL. PREMIX PERIPHER. 50 ML IV SCH (14:39)
[2024-05-31] MEDS: LACTATED RINGERS IV SCH ×2 (15:04→15:06)
[2024-05-31 16:00] VITALS: BP_SYST 122; BP_SYST 93; BP_DIAS 55; BP_DIAS 85; BP_DIAS 87; TEMP 98.1; TEMP 98.6; O2SAT 100; O2SAT 99
[2024-05-31 20:19] VITALS: BP 104/70; TEMP 98.2; O2SAT 94
[2024-06-01 06:39] LABS: CALCIUM, SERUM 9.2 mg/dL (8.5-10.1); CREATININE 1.4 mg/dL (0.6-1.3)
[2024-06-01 07:34] LABS: MAGNESIUM 1.3 mg/dL (1.8-2.4); POTASSIUM 2.9 mmol/L (3.5-5.1)
[2024-06-01 08:00] VITALS: BP 179/115; TEMP 98.4; O2SAT 94
[2024-06-01] MEDS: Magnesium 1GM/D5W 100ML PREMIX 100 ML IV SCH (08:39)
[2024-06-01] MEDS: POTASSIUM CL. PREMIX PERIPHER. 50 ML IV SCH (09:29)
[2024-06-01 12:07] LABS: *CRYPTOCOCCUS AG, CSF Negative (Negative)
[2024-06-01 16:00] VITALS: BP 132/92; TEMP 98.6; O2SAT 96
[2024-06-01 20:00] VITALS: BP 143/100; TEMP 98.4; O2SAT 99
[2024-06-02 06:22] LABS: CALCIUM, SERUM 9.3 mg/dL (8.5-10.1); CREATININE 1.4 mg/dL (0.6-1.3); MAGNESIUM 1.7 mg/dL (1.8-2.4); PHOSPHORUS 4.3 mg/dL (2.5-4.9); POTASSIUM 2.8 mmol/L (3.5-5.1)
[2024-06-02 07:00] VITALS: BP_SYST 100; BP_SYST 143; BP_DIAS 53; BP_DIAS 86; TEMP 98.1; TEMP 98.6; O2SAT 96; O2SAT 97
[2024-06-02] MEDS: POTASSIUM CL. PREMIX PERIPHER. 50 ML IV SCH (10:37)
[2024-06-02] MEDS: Magnesium 1GM/D5W 100ML PREMIX 100 ML IV SCH (14:46)
[2024-06-02 16:00] VITALS: BP 160/100; TEMP 98.4; O2SAT 97
[2024-06-02 20:14] VITALS: BP 138/95; TEMP 98.1; O2SAT 96
[2024-06-03 06:00] VITALS: BP 138/95; TEMP 98.1; O2SAT 96
[2024-06-03 06:33] LABS: BASOPHILS # (AUTO) 0.1 K/uL (0.0-0.2); BASOPHILS % (AUTO) 0.4 % (0.0-2.0); EOSINOPHILS # (AUTO) 0.3 K/uL (0.0-0.7); EOSINOPHILS % (AUTO) 1.8 % (0.0-6.0); HEMATOCRIT 40 % (39-51); HEMOGLOBIN 13.5 g/dL (13.5-17.5); LYMPHOCYTES # (AUTO) 2.3 K/uL (0.8-4.8); LYMPHOCYTES % (AUTO) 15.1 % (20.0-44.0); MEAN CORPUSCULAR HEMOGLOBIN 31 PG (26.0-33.0); MEAN CORPUSCULAR HGB CONC 33 g/dl (31.0-36.0); MEAN CORPUSCULAR VOLUME 92 fL (80-96); MONOCYTES # (AUTO) 0.8 K/uL (0.1-1.30); NEUTROPHILS # (AUTO) 12.1 K/uL (1.8-8.9); NEUTROPHILS % (AUTO) 77.7 % (43.0-81.0); PLATELET COUNT (AUTO) 322 K/uL (150-450); RED CELL DISTRIBUTION WIDTH 13.7 % (11.5-15.0); WHITE BLOOD COUNT (AUTO) 15.5 K/uL (4.3-11.0)
[2024-06-03 06:41] LABS: CALCIUM, SERUM 9.4 mg/dL (8.5-10.1); CREATININE 1.2 mg/dL (0.6-1.3); MAGNESIUM 1.4 mg/dL (1.8-2.4); PHOSPHORUS 4.3 mg/dL (2.5-4.9)
[2024-06-03 06:45] LABS: POTASSIUM 2.8 mmol/L (3.5-5.1)
[2024-06-03 07:03] LABS: ALBUMIN 3.2 g/dL (3.4-5.0); BILIRUBIN,TOTAL 0.5 mg/dL (0.2-1.0); TOTAL PROTEIN, SERUM 7.9 g/dL (6.4-8.2)
[2024-06-03] MEDS: POTASSIUM CHLORIDE 20 MEQ TAB.PRT.SR PO ONE ×2 (07:15→12:07)
[2024-06-03] MEDS: Magnesium 1GM/D5W 100ML PREMIX 100 ML IV SCH (07:16)
[2024-06-03 08:00] VITALS: BP 144/90; TEMP 98.4; O2SAT 98
[2024-06-03 16:00] VITALS: BP 147/97; TEMP 99; O2SAT 98
[2024-06-03 20:27] VITALS: BP 159/115; TEMP 97.9; O2SAT 97
[2024-06-04 08:00] VITALS: BP 153/55; TEMP 97.9; O2SAT 98
[2024-06-04 10:47] LABS: BASOPHILS # (AUTO) 0.1 K/uL (0.0-0.2); BASOPHILS % (AUTO) 0.8 % (0.0-2.0); EOSINOPHILS # (AUTO) 0.2 K/uL (0.0-0.7); EOSINOPHILS % (AUTO) 2.4 % (0.0-6.0); HEMATOCRIT 41 % (39-51); HEMOGLOBIN 13.6 g/dL (13.5-17.5); LYMPHOCYTES # (AUTO) 1.9 K/uL (0.8-4.8); LYMPHOCYTES % (AUTO) 20.5 % (20.0-44.0); MEAN CORPUSCULAR HEMOGLOBIN 30 PG (26.0-33.0); MEAN CORPUSCULAR HGB CONC 34 g/dl (31.0-36.0); MEAN CORPUSCULAR VOLUME 90 fL (80-96); MONOCYTES # (AUTO) 0.6 K/uL (0.1-1.30); MONOCYTES % (AUTO) 6.9 % (2.0-12.0); NEUTROPHILS # (AUTO) 6.5 K/uL (1.8-8.9); NEUTROPHILS % (AUTO) 69.4 % (43.0-81.0); PLATELET COUNT (AUTO) 331 K/uL (150-450); RED BLOOD CELL COUNT(AUTO) 4.52 MIL/uL (4.5-6.0); RED CELL DISTRIBUTION WIDTH 13.7 % (11.5-15.0); WHITE BLOOD COUNT (AUTO) 9.3 K/uL (4.3-11.0)
[2024-06-04 11:10] LABS: CALCIUM, SERUM 9.2 mg/dL (8.5-10.1); CREATININE 1.1 mg/dL (0.6-1.3); MAGNESIUM 1.3 mg/dL (1.8-2.4); PHOSPHORUS 4.3 mg/dL (2.5-4.9); POTASSIUM 3.1 mmol/L (3.5-5.1)
[2024-06-04 16:04] LABS: HIV-1 p24 ANTIGEN NON REACTIVE (NONREACTIVE); HIV-1/2 ANTIBODY NON REACTIVE (NONREACTIVE)
[2024-06-04 20:00] VITALS: BP 142/85; TEMP 98.2; O2SAT 99
== END 2024-06-04 21:04 | disposition short-term general hospital (02) | DRG 58 ==
LOC: ER 16:47 → MED 21:14
PROVIDERS: ATTEND Student in an Organized Health Care Education/Training Program
PROC: 009U3ZX Drainage of Spinal Canal, Percutaneous Approach, Diagnostic (ICD-10-PCS; principal; 2024-05-29)
PROC: B01BYZZ Fluoroscopy of Spinal Cord using Other Contrast (ICD-10-PCS; 2024-05-29)
PROC: 00JU3ZZ Inspection of Spinal Canal, Percutaneous Approach (ICD-10-PCS; 2024-05-29)
PROC: BR19YZZ Fluoroscopy of Lumbar Spine using Other Contrast (ICD-10-PCS; 2024-05-29)
DX: T85.01XA Breakdown (mechanical) of ventricular intracranial (communicating) shunt, initial encounter (principal); G93.41 Metabolic encephalopathy; G92.8 Other toxic encephalopathy; D68.59 Other primary thrombophilia; F29 Unspecified psychosis not due to a substance or known physiological condition; E87.0 Hyperosmolality and hypernatremia; E87.20 Acidosis, unspecified; T83.511A Infection and inflammatory reaction due to indwelling urethral catheter, initial encounter; G82.20 Paraplegia, unspecified; N39.0 Urinary tract infection, site not specified; R62.7 Adult failure to thrive; Y84.6 Urinary catheterization as the cause of abnormal reaction of the patient, or of later complication, without mention of misadventure at the time of the procedure; Y92.129 Unspecified place in nursing home as the place of occurrence of the external cause; Z20.822 Contact with and (suspected) exposure to COVID-19; Z74.01 Bed confinement status; N40.0 Benign prostatic hyperplasia without lower urinary tract symptoms; Z98.2 Presence of cerebrospinal fluid drainage device; M89.8X9 Other specified disorders of bone, unspecified site; Z86.19 Personal history of other infectious and parasitic diseases; N31.9 Neuromuscular dysfunction of bladder, unspecified; Z79.899 Other long term (current) drug therapy; B96.89 Other specified bacterial agents as the cause of diseases classified elsewhere; Z92.29 Personal history of other drug therapy; Z86.61 Personal history of infections of the central nervous system; Y83.8 Other surgical procedures as the cause of abnormal reaction of the patient, or of later complication, without mention of misadventure at the time of the procedure; E86.0 Dehydration; E86.9 Volume depletion, unspecified; E87.6 Hypokalemia; Z87.440 Personal history of urinary (tract) infections; E83.42 Hypomagnesemia; G91.9 Hydrocephalus, unspecified; N17.9 Acute kidney failure, unspecified; B19.20 Unspecified viral hepatitis C without hepatic coma
CPT/HCPCS: 36415; 62270; 70450-TC; 70551-TC; 71045-TC; 76770-TC; 80048-TC; 80053-TC; 80076-TC; 81001; 82140-TC; 82570-TC; 83605-TC; 83735-TC; 83880; 84100-TC; 84300-TC; 84484-TC; 85025-TC; 85730-TC; 86803; 87040-TC; 87081-TC; 87086-TC; 87102-TC; 87340; 87806; 87899; 89051-TC; A4223; G0378; J0285; J0287; J0692; J0696; J1650; J3475; J3480; J3490; J7030; J7040; J7050; J7060; J7120

== ENCOUNTER 2024-06-18 14:25 | Inpatient (IN) | payer OTHER ==
[~2024-06-18] VITALS: Ht 190.5 cm; Wt 100.7 kg
[~2024-06-18 14:25] MED LIST changes: -CEFT2VIA14 IV; +MAG30ORA PO; +MEGE400O5 PO; +ONDA-97 PO; -PREG-57 PO
[2024-06-19 20:45] VITALS: BP 129/86; TEMP 98.6; O2SAT 98
[2024-06-20] MEDS ORDERED: ONDANSETRON HCL/PF 4 MG/2 ML VIAL IVP PRN (00:30)
[2024-06-20] MEDS ORDERED: HYDROCODONE/APAP 5/325MG TABLET PO PRN (00:30)
[2024-06-20] MEDS ORDERED: LORAZEPAM 0.5 MG TABLET PO PRN (00:30)
[2024-06-20] MEDS ORDERED: ACETAMINOPHEN 325 MG TABLET PO PRN (00:30)
[2024-06-20] MEDS ORDERED: MAGNESIUM HYDROXIDE 30 ML UDC PO PRN (00:30)
[2024-06-20] MEDS ORDERED: Z GUARD REMEDY 4 OZ OINT TP PRN (00:30)
[2024-06-20 01:06] LABS: BASOPHILS # (AUTO) 0.1 K/uL (0.0-0.2); BASOPHILS % (AUTO) 0.8 % (0.0-2.0); EOSINOPHILS # (AUTO) 0.3 K/uL (0.0-0.7); EOSINOPHILS % (AUTO) 2.6 % (0.0-6.0); HEMATOCRIT 40 % (39-51); HEMOGLOBIN 13.5 g/dL (13.5-17.5); MEAN CORPUSCULAR HEMOGLOBIN 31 PG (26.0-33.0); MEAN CORPUSCULAR HGB CONC 34 g/dl (31.0-36.0); MEAN CORPUSCULAR VOLUME 91 fL (80-96); MONOCYTES # (AUTO) 0.7 K/uL (0.1-1.30); MONOCYTES % (AUTO) 5.7 % (2.0-12.0); NEUTROPHILS # (AUTO) 8.7 K/uL (1.8-8.9); NEUTROPHILS % (AUTO) 67.9 % (43.0-81.0); PLATELET COUNT (AUTO) 314 K/uL (150-450); RED CELL DISTRIBUTION WIDTH 14.1 % (11.5-15.0); WHITE BLOOD COUNT (AUTO) 12.8 K/uL (4.3-11.0)
[2024-06-20 01:29] LABS: ALBUMIN 3.6 g/dL (3.4-5.0); BILIRUBIN,TOTAL 0.3 mg/dL (0.2-1.0); CALCIUM, SERUM 9.3 mg/dL (8.5-10.1); CREATININE 0.8 mg/dL (0.6-1.3); MAGNESIUM 1.8 mg/dL (1.8-2.4); POTASSIUM 4.2 mmol/L (3.5-5.1); TOTAL PROTEIN, SERUM 8.6 g/dL (6.4-8.2)
[2024-06-20 04:00] VITALS: BP 121/84; TEMP 97.5; O2SAT 98
[2024-06-20] MEDS: PANTOPRAZOLE 40 MG TABLET.DR PO SCH (07:48)
[2024-06-20 08:00] VITALS: BP 128/90; TEMP 97.4; O2SAT 92
[2024-06-20] MEDS: MULTIVITAMINS,THERAGRAN 1 UDTAB TABLET PO SCH (08:39)
[2024-06-20] MEDS: AMLODIPINE BESYLATE 5 MG TABLET PO SCH (08:39)
[2024-06-20] MEDS: FLUCONAZOLE (100 MG) 100 MG TABLET PO SCH (08:39)
[2024-06-20] MEDS: SENNOSIDES/DOCUSATE SODIUM 1 TAB TABLET PO SCH (08:39)
[2024-06-20] MEDS: CHOLECALCIFEROL 1,000 UNIT TABLET (VIT D3) PO SCH (08:39)
[2024-06-20] MEDS: LEVETIRACETAM (250 MG) 250 MG TABLET PO SCH (08:40)
[2024-06-20] MEDS: BACLOFEN (10 MG) 10 MG TABLET PO SCH (08:40)
[2024-06-20] MEDS: METOPROLOL TARTRATE 50 MG TABLET PO SCH (08:40)
[2024-06-20] MEDS: HEPARIN SODIUM, PORCINE 5000 UNITS/1 ML VIAL SQ SCH (08:42)
[2024-06-20] MEDS ORDERED: QUET300T2 PO (08:49)
[2024-06-20] MEDS ORDERED: PANT40TA2 PO (08:49)
[2024-06-20] MEDS ORDERED: BACL20TA PO (08:49)
[2024-06-20] MEDS ORDERED: MULT-213 PO (08:49)
[2024-06-20] MEDS ORDERED: CHOL200059 PO (08:49)
[2024-06-20] MEDS ORDERED: NALO4SPR NS (08:49)
[2024-06-20] MEDS ORDERED: METO50TA16 PO (08:49)
[2024-06-20] MEDS ORDERED: FLUC200T8 PO (08:49)
[2024-06-20] MEDS ORDERED: AMLO10TA4 PO (08:49)
[2024-06-20] MEDS ORDERED: HEPA500039 SQ (08:49)
[2024-06-20] MEDS ORDERED: LEVE100023 PO (08:49)
[2024-06-20] MEDS ORDERED: ATOR40TA PO (08:49)
[2024-06-20] MEDS ORDERED: LORA-259 PO (08:49)
[2024-06-20 12:00] VITALS: BP 126/86; TEMP 97.5; O2SAT 98
[2024-06-20 16:00] VITALS: BP 112/75; TEMP 98.1; O2SAT 98
[2024-06-20 20:00] VITALS: BP 122/79; TEMP 97.7; O2SAT 97
[2024-06-20] MEDS: TAMSULOSIN 0.4 MG CAP.SR.24H PO SCH (21:48)
[2024-06-20] MEDS: QUETIAPINE FUMARATE 100 MG TABLET PO SCH (21:49)
[2024-06-20] MEDS: ATORVASTATIN 40 MG TABLET PO SCH (21:49)
[2024-06-21] VITALS: BP 137/87; TEMP 98.1; O2SAT 97
[2024-06-21 04:00] VITALS: BP 111/80; TEMP 97.9; O2SAT 97
[2024-06-21 08:00] VITALS: BP 118/82; TEMP 97.5; O2SAT 97
[2024-06-21 12:00] VITALS: BP 128/95; TEMP 97.5; O2SAT 99
[2024-06-21 12:08] LABS: BASOPHILS % (AUTO) 0.3 % (0.0-2.0); EOSINOPHILS # (AUTO) 0.2 K/uL (0.0-0.7); EOSINOPHILS % (AUTO) 1.6 % (0.0-6.0); HEMATOCRIT 46 % (39-51); HEMOGLOBIN 15.2 g/dL (13.5-17.5); LYMPHOCYTES # (AUTO) 2.6 K/uL (0.8-4.8); MEAN CORPUSCULAR HEMOGLOBIN 31 PG (26.0-33.0); MEAN CORPUSCULAR HGB CONC 33 g/dl (31.0-36.0); MEAN CORPUSCULAR VOLUME 93 fL (80-96); MONOCYTES # (AUTO) 0.9 K/uL (0.1-1.30); MONOCYTES % (AUTO) 6.4 % (2.0-12.0); NEUTROPHILS % (AUTO) 72.7 % (43.0-81.0); PLATELET COUNT (AUTO) 257 K/uL (150-450); RED BLOOD CELL COUNT(AUTO) 4.98 MIL/uL (4.5-6.0); RED CELL DISTRIBUTION WIDTH 14.1 % (11.5-15.0); WHITE BLOOD COUNT (AUTO) 13.8 K/uL (4.3-11.0)
[2024-06-21] MEDS: LEVETIRACETAM (500MG) 1,000 MG in IV NS 0.9% 90 ML IV SCH (12:11)
[2024-06-21 12:17] LABS: CREATININE 0.7 mg/dL (0.6-1.3); POTASSIUM 4.5 mmol/L (3.5-5.1)
[2024-06-21 16:00] VITALS: BP 114/85; TEMP 97.3; O2SAT 98
[2024-06-21 20:00] VITALS: BP 125/90; TEMP 98.2; O2SAT 98
[2024-06-22] VITALS: BP 118/87; TEMP 98.2; O2SAT 98
[2024-06-22 04:00] VITALS: BP 121/84; TEMP 98; O2SAT 95
[2024-06-22 06:44] LABS: BASOPHILS % (AUTO) 0.3 % (0.0-2.0); EOSINOPHILS # (AUTO) 0.2 K/uL (0.0-0.7); EOSINOPHILS % (AUTO) 1.8 % (0.0-6.0); HEMATOCRIT 42 % (39-51); HEMOGLOBIN 14.2 g/dL (13.5-17.5); LYMPHOCYTES # (AUTO) 1.6 K/uL (0.8-4.8); LYMPHOCYTES % (AUTO) 13.8 % (20.0-44.0); MEAN CORPUSCULAR HEMOGLOBIN 31 PG (26.0-33.0); MEAN CORPUSCULAR HGB CONC 34 g/dl (31.0-36.0); MEAN CORPUSCULAR VOLUME 92 fL (80-96); MONOCYTES # (AUTO) 0.9 K/uL (0.1-1.30); MONOCYTES % (AUTO) 7.6 % (2.0-12.0); NEUTROPHILS # (AUTO) 9.1 K/uL (1.8-8.9); NEUTROPHILS % (AUTO) 76.5 % (43.0-81.0); PLATELET COUNT (AUTO) 273 K/uL (150-450); RED BLOOD CELL COUNT(AUTO) 4.59 MIL/uL (4.5-6.0); RED CELL DISTRIBUTION WIDTH 13.9 % (11.5-15.0); WHITE BLOOD COUNT (AUTO) 11.9 K/uL (4.3-11.0)
[2024-06-22 06:48] LABS: CALCIUM, SERUM 10.1 mg/dL (8.5-10.1); CREATININE 1.1 mg/dL (0.6-1.3); POTASSIUM 4.5 mmol/L (3.5-5.1)
[2024-06-22 08:00] VITALS: BP 128/70; TEMP 98.8; O2SAT 96
[2024-06-22 12:00] VITALS: BP 99/79; TEMP 98.6; O2SAT 97
[2024-06-22 16:00] VITALS: BP 107/78; TEMP 98.6; O2SAT 96
[2024-06-22 20:00] VITALS: BP 115/85; TEMP 98.1; O2SAT 97
[2024-06-22] MEDS: LEVETIRACETAM (500MG) 1,000 MG in PREMIX 90 EA IV SCH (20:31)
[2024-06-23] VITALS: BP_SYST 112; BP_SYST 134; BP_DIAS 82; BP_DIAS 89; TEMP 98.2; TEMP 98.5; O2SAT 97; O2SAT 98
[2024-06-23 04:00] VITALS: BP 112/82; TEMP 98.3; O2SAT 98
[2024-06-23 06:46] LABS: POTASSIUM 4.4 mmol/L (3.5-5.1)
[2024-06-23 06:53] LABS: BASOPHILS # (AUTO) 0.1 K/uL (0.0-0.2); BASOPHILS % (AUTO) 0.6 % (0.0-2.0); EOSINOPHILS # (AUTO) 0.3 K/uL (0.0-0.7); HEMATOCRIT 41 % (39-51); LYMPHOCYTES # (AUTO) 2.7 K/uL (0.8-4.8); LYMPHOCYTES % (AUTO) 26.5 % (20.0-44.0); MEAN CORPUSCULAR HEMOGLOBIN 32 PG (26.0-33.0); MEAN CORPUSCULAR HGB CONC 35 g/dl (31.0-36.0); MEAN CORPUSCULAR VOLUME 91 fL (80-96); MONOCYTES # (AUTO) 1.2 K/uL (0.1-1.30); MONOCYTES % (AUTO) 11.2 % (2.0-12.0); NEUTROPHILS % (AUTO) 58.7 % (43.0-81.0); PLATELET COUNT (AUTO) 226 K/uL (150-450); RED BLOOD CELL COUNT(AUTO) 4.45 MIL/uL (4.5-6.0); RED CELL DISTRIBUTION WIDTH 14.3 % (11.5-15.0); WHITE BLOOD COUNT (AUTO) 10.3 K/uL (4.3-11.0)
[2024-06-23 08:00] VITALS: BP 124/93; TEMP 98.1; O2SAT 98
[2024-06-23 12:00] VITALS: BP 116/87; TEMP 98.3; O2SAT 98
[2024-06-23 16:00] VITALS: BP 120/87; TEMP 98; O2SAT 98
[2024-06-23 20:00] VITALS: BP 127/87; TEMP 98.1; O2SAT 94
[2024-06-24] VITALS: BP 112/82; TEMP 98.2; O2SAT 94
[2024-06-24] MEDS: IV D5/ 0.9% NACL 1,000 ML IV PRN (02:34)
[2024-06-24 04:00] VITALS: BP 113/75; TEMP 98.1; O2SAT 98
[2024-06-24 06:30] LABS: BASOPHILS # (AUTO) 0.1 K/uL (0.0-0.2); BASOPHILS % (AUTO) 0.4 % (0.0-2.0); EOSINOPHILS % (AUTO) 0.2 % (0.0-6.0); HEMATOCRIT 41 % (39-51); HEMOGLOBIN 13.9 g/dL (13.5-17.5); LYMPHOCYTES # (AUTO) 1.6 K/uL (0.8-4.8); LYMPHOCYTES % (AUTO) 8.6 % (20.0-44.0); MEAN CORPUSCULAR HEMOGLOBIN 31 PG (26.0-33.0); MEAN CORPUSCULAR HGB CONC 34 g/dl (31.0-36.0); MEAN CORPUSCULAR VOLUME 92 fL (80-96); MONOCYTES # (AUTO) 1.8 K/uL (0.1-1.30); MONOCYTES % (AUTO) 10.1 % (2.0-12.0); NEUTROPHILS # (AUTO) 14.7 K/uL (1.8-8.9); NEUTROPHILS % (AUTO) 80.7 % (43.0-81.0); PLATELET COUNT (AUTO) 199 K/uL (150-450); RED BLOOD CELL COUNT(AUTO) 4.52 MIL/uL (4.5-6.0); RED CELL DISTRIBUTION WIDTH 14.1 % (11.5-15.0); WHITE BLOOD COUNT (AUTO) 18.2 K/uL (4.3-11.0)
[2024-06-24 06:50] LABS: CALCIUM, SERUM 10.7 mg/dL (8.5-10.1); CREATININE 1.4 mg/dL (0.6-1.3); POTASSIUM 4.9 mmol/L (3.5-5.1)
[2024-06-24 08:00] VITALS: BP 120/74; TEMP 97.8; O2SAT 96
[2024-06-24] MEDS: IV NS 0.9% 500 ML IV ONE (08:36)
[2024-06-24] MEDS: LEVETIRACETAM (250 MG) 250 MG TABLET PO SCH (09:00)
[2024-06-24 12:00] VITALS: BP 121/73; TEMP 98.3; O2SAT 94
[2024-06-24] MEDS ORDERED: ENSURE ENLIVE 237 ML LIQUID (VANILLA) PO SCH (13:00)
[2024-06-24] MEDS: ENSURE ENLIVE 237 ML LIQUID (VANILLA) PO SCH (13:06)
[2024-06-24 16:00] VITALS: BP 115/72; TEMP 97; O2SAT 96
[2024-06-24 20:00] VITALS: BP 125/68; TEMP 97.3; O2SAT 95
[2024-06-24] MEDS: LEVETIRACETAM (500MG) 1,000 MG in IV NS 0.9% 90 ML IV SCH (20:37)
[2024-06-25] VITALS (21 sets, daily range): BP systolic 106–148; BP diastolic 70–110; TEMP 97.1–102.6; O2SAT 91–99
[2024-06-25] MEDS: ACETAMINOPHEN 650 MG/SUPP.RECT RC PRN (01:41)
[2024-06-25] MEDS: VANCOMYCIN 1 GM /D5W 250 ML PB IV ONE (02:16)
[2024-06-25] MEDS: VANCOMYCIN 1.5 GM in IV NS 0.9% 250 ML IV ONE (02:18)
[2024-06-25] MEDS ORDERED: CEFEPIME 1 GM VIAL ONE (05:16)
[2024-06-25] MEDS: CEFEPIME 2 GM in IV D5W 100 ML IV SCH (05:27)
[2024-06-25 06:34] LABS: APPEARANCE,URINE SLIGHTLY CLOUDY (CLEAR); BILIRUBIN,URINE NEGATIVE (NEGATIVE); BLOOD, URINE NEGATIVE Ery/uL (NEGATIVE); COLOR,URINE DARK YELLOW (YELLOW); KETONES,URINE NEGATIVE (NEGATIVE); LEUKOCYTE ESTERASE ,URINE 1+ (NEGATIVE); NITRITE, URINE NEGATIVE (NEGATIVE); PH,URINE 5.5 (5.0-8.0); PROTEIN,URINE TRACE mg/dl (NEGATIVE); UGLUCOSE NEGATIVE (NEGATIVE)
[2024-06-25 07:09] LABS: ADD URINE CULTURE YES; BACTERIA,URINE Few /HPF (None Seen); SQUAMOUS EPITHELIAL CELL,UR Few /HPF (None Seen); URINE AMORPHOUS URATE Many /HPF (None Seen); WBC,URINE TOO NUMEROUS TO COUN /HPF (0-3)
[2024-06-25 07:16] LABS: BASOPHILS # (AUTO) 0.1 K/uL (0.0-0.2); BASOPHILS % (AUTO) 0.4 % (0.0-2.0); EOSINOPHILS % (AUTO) 0.1 % (0.0-6.0); HEMATOCRIT 38 % (39-51); HEMOGLOBIN 12.3 g/dL (13.5-17.5); LYMPHOCYTES # (AUTO) 1.5 K/uL (0.8-4.8); LYMPHOCYTES % (AUTO) 5.6 % (20.0-44.0); MEAN CORPUSCULAR HEMOGLOBIN 30 PG (26.0-33.0); MEAN CORPUSCULAR HGB CONC 33 g/dl (31.0-36.0); MEAN CORPUSCULAR VOLUME 93 fL (80-96); MONOCYTES # (AUTO) 2.1 K/uL (0.1-1.30); MONOCYTES % (AUTO) 7.7 % (2.0-12.0); NEUTROPHILS # (AUTO) 23.7 K/uL (1.8-8.9); NEUTROPHILS % (AUTO) 86.2 % (43.0-81.0); PLATELET COUNT (AUTO) 183 K/uL (150-450); RED BLOOD CELL COUNT(AUTO) 4.06 MIL/uL (4.5-6.0); WHITE BLOOD COUNT (AUTO) 27.5 K/uL (4.3-11.0)
[2024-06-25 07:31] LABS: EOSINOPHIL,URINE None Seen
[2024-06-25 07:37] LABS: ALBUMIN 2.6 g/dL (3.4-5.0); BILIRUBIN,TOTAL 0.6 mg/dL (0.2-1.0); CALCIUM, SERUM 10.9 mg/dL (8.5-10.1); CREATININE 1.7 mg/dL (0.6-1.3); MAGNESIUM 2.2 mg/dL (1.8-2.4); PHOSPHORUS 5.3 mg/dL (2.5-4.9); POTASSIUM 4.1 mmol/L (3.5-5.1); TOTAL PROTEIN, SERUM 7.6 g/dL (6.4-8.2)
[2024-06-25 08:15] LABS: CREATININE, URINE 261.9 MG/DL (30.0-125.0); URINE TOTAL PROTEIN 73.8 mg/dL (0-11.9)
[2024-06-25 11:01] LABS: ABG BASE EXCESS -7.3 mmol/L (-2.0-3.0); ABG OXYGEN SATURATION 94.9 % (94.0-98.0); ABG PCO2 28.1 mmHg (35.0-48.0); ABG PH 7.382 (7.350-7.450); ABG PO2 79.5 mmHg (83.0-108.0); ABG TOTAL HEMOGLOBIN 13.3 G/dL (13.5-17.5); COHb 0.3 % (0.5-1.5); MetHb 0.2 % (0.0-1.5); O2Hb 94.4 % (94.0-97.0); SITE, ABG LEFT RADIAL
[2024-06-25] MEDS: VANCOMYCIN HCL 1.25 GM in IV D5W 250 ML IV SCH (14:09)
[2024-06-26] VITALS (36 sets, daily range): BP systolic 109–152; BP diastolic 60–99; TEMP 97.7–98.4; O2SAT 82–100
[2024-06-26 05:13] LABS: PTH, INTACT 5 pg/mL (15-65)
[2024-06-26 05:28] LABS: BASOPHILS # (AUTO) 0.2 K/uL (0.0-0.2); BASOPHILS % (AUTO) 0.9 % (0.0-2.0); EOSINOPHILS # (AUTO) 0.1 K/uL (0.0-0.7); EOSINOPHILS % (AUTO) 0.5 % (0.0-6.0); HEMATOCRIT 34 % (39-51); HEMOGLOBIN 11.4 g/dL (13.5-17.5); LYMPHOCYTES # (AUTO) 1.4 K/uL (0.8-4.8); LYMPHOCYTES % (AUTO) 4.8 % (20.0-44.0); MEAN CORPUSCULAR HEMOGLOBIN 32 PG (26.0-33.0); MEAN CORPUSCULAR HGB CONC 34 g/dl (31.0-36.0); MEAN CORPUSCULAR VOLUME 92 fL (80-96); MONOCYTES # (AUTO) 1.4 K/uL (0.1-1.30); MONOCYTES % (AUTO) 4.9 % (2.0-12.0); NEUTROPHILS # (AUTO) 25.6 K/uL (1.8-8.9); NEUTROPHILS % (AUTO) 88.9 % (43.0-81.0); PLATELET COUNT (AUTO) 172 K/uL (150-450); RED BLOOD CELL COUNT(AUTO) 3.63 MIL/uL (4.5-6.0); WHITE BLOOD COUNT (AUTO) 28.7 K/uL (4.3-11.0)
[2024-06-26 05:32] LABS: CALCIUM, SERUM 11.5 mg/dL (8.5-10.1); MAGNESIUM 1.7 mg/dL (1.8-2.4); PHOSPHORUS 3.1 mg/dL (2.5-4.9); POTASSIUM 3.8 mmol/L (3.5-5.1)
[2024-06-26] MEDS: IV 1/2NS 1000 ML 1,000 ML IV PRN (09:19)
[2024-06-26 09:23] LABS: BAND % (MANUAL) 3 % (0.0-5.0); EOSINOPHILS % (MANUAL) 2 % (0-4); LYMPHOCYTES % (MANUAL) 5 % (16-48); MONOCYTES % (MANUAL) 4 % (0-11.0); NEUTROPHILS % (MANUAL) 86 (42-76)
[2024-06-26 09:24] LABS: PLATELET ESTIMATE ADEQUATE
[2024-06-26] MEDS ORDERED: NS IV SCH (10:30)
[2024-06-26] MEDS ORDERED: FLUCONAZOLE IV SCH (10:30)
[2024-06-26] MEDS: NS IV SCH (11:03)
[2024-06-26] MEDS: FLUCONAZOLE IV SCH (11:03)
[2024-06-26] MEDS: Magnesium 1GM/D5W 100ML PREMIX 100 ML IV SCH (13:01)
[2024-06-27] VITALS (19 sets, daily range): BP systolic 93–153; BP diastolic 70–121; TEMP 97.2–98.1; O2SAT 94–98
[2024-06-27 09:20] LABS: BASOPHILS # (AUTO) 0.1 K/uL (0.0-0.2); BASOPHILS % (AUTO) 0.3 % (0.0-2.0); EOSINOPHILS # (AUTO) 0.5 K/uL (0.0-0.7); EOSINOPHILS % (AUTO) 3.3 % (0.0-6.0); HEMATOCRIT 35 % (39-51); HEMOGLOBIN 11.4 g/dL (13.5-17.5); LYMPHOCYTES % (AUTO) 6.1 % (20.0-44.0); MEAN CORPUSCULAR HEMOGLOBIN 30 PG (26.0-33.0); MEAN CORPUSCULAR HGB CONC 33 g/dl (31.0-36.0); MEAN CORPUSCULAR VOLUME 93 fL (80-96); MONOCYTES # (AUTO) 0.8 K/uL (0.1-1.30); MONOCYTES % (AUTO) 5.1 % (2.0-12.0); NEUTROPHILS # (AUTO) 13.8 K/uL (1.8-8.9); NEUTROPHILS % (AUTO) 85.2 % (43.0-81.0); PLATELET COUNT (AUTO) 183 K/uL (150-450); RED BLOOD CELL COUNT(AUTO) 3.77 MIL/uL (4.5-6.0); WHITE BLOOD COUNT (AUTO) 16.2 K/uL (4.3-11.0)
[2024-06-27 09:34] LABS: ALBUMIN 2.2 g/dL (3.4-5.0); BILIRUBIN,TOTAL 1.1 mg/dL (0.2-1.0); CALCIUM, SERUM 11.3 mg/dL (8.5-10.1); CREATININE 0.8 mg/dL (0.6-1.3); MAGNESIUM 1.8 mg/dL (1.8-2.4); PHOSPHORUS 3.9 mg/dL (2.5-4.9); TOTAL PROTEIN, SERUM 7.7 g/dL (6.4-8.2)
[2024-06-27 10:12] LABS: POTASSIUM 2.7 mmol/L (3.5-5.1)
[2024-06-27] MEDS: POTASSIUM CL. PREMIX PERIPHER. 50 ML IV SCH (11:02)
[2024-06-27] MEDS: hydrALAZINE HCL IV 20 MG VIAL IV PRN (15:29)
[2024-06-28] VITALS: BP 117/62; TEMP 97.8; O2SAT 95
[2024-06-28 04:00] VITALS: BP 111/72; TEMP 98.1; O2SAT 94
[2024-06-28 07:09] LABS: *SPE A/G RATIO 0.6 (0.7-1.7); *SPE ALBUMIN 2.5 g/dL (2.9-4.4); *SPE ALPHA-1-GLOBULIN 0.5 g/dL (0.0-0.4); *SPE BETA GLOBULIN 1.1 g/dL (0.7-1.3); *SPE GLOBULIN, TOTAL 4.1 g/dL (2.2-3.9); *SPE M-SPIKE Not Observed g/dL (Not Observed); *SPE PROTEIN TOTAL 6.6 g/dL (6.0-8.5); *SPEGAMMA GLOBULIN 1.4 g/dL (0.4-1.8)
[2024-06-28 07:10] LABS: BASOPHILS % (AUTO) 0.2 % (0.0-2.0); EOSINOPHILS # (AUTO) 0.5 K/uL (0.0-0.7); EOSINOPHILS % (AUTO) 4.4 % (0.0-6.0); HEMATOCRIT 31 % (39-51); HEMOGLOBIN 10.5 g/dL (13.5-17.5); LYMPHOCYTES # (AUTO) 1.2 K/uL (0.8-4.8); LYMPHOCYTES % (AUTO) 10.5 % (20.0-44.0); MEAN CORPUSCULAR HEMOGLOBIN 31 PG (26.0-33.0); MEAN CORPUSCULAR HGB CONC 34 g/dl (31.0-36.0); MEAN CORPUSCULAR VOLUME 92 fL (80-96); MONOCYTES # (AUTO) 0.6 K/uL (0.1-1.30); MONOCYTES % (AUTO) 5.4 % (2.0-12.0); NEUTROPHILS # (AUTO) 9.1 K/uL (1.8-8.9); NEUTROPHILS % (AUTO) 79.5 % (43.0-81.0); PLATELET COUNT (AUTO) 160 K/uL (150-450); RED BLOOD CELL COUNT(AUTO) 3.39 MIL/uL (4.5-6.0); RED CELL DISTRIBUTION WIDTH 13.9 % (11.5-15.0); WHITE BLOOD COUNT (AUTO) 11.5 K/uL (4.3-11.0)
[2024-06-28 07:53] LABS: ALBUMIN 1.9 g/dL (3.4-5.0); CREATININE 0.8 mg/dL (0.6-1.3); MAGNESIUM 1.8 mg/dL (1.8-2.4); PHOSPHORUS 4.6 mg/dL (2.5-4.9); TOTAL PROTEIN, SERUM 7.1 g/dL (6.4-8.2)
[2024-06-28 07:56] LABS: POTASSIUM 2.7 mmol/L (3.5-5.1)
[2024-06-28 08:00] VITALS: BP 112/61; TEMP 98.1; O2SAT 94
[2024-06-28 12:00] VITALS: BP 127/83; TEMP 97; O2SAT 93
[2024-06-28] MEDS: VANCOMYCIN 1 GM in IV D5W 250ml IV SCH (15:08)
[2024-06-28 16:00] VITALS: BP 141/76; TEMP 97.1; O2SAT 93
[2024-06-28] MEDS: JEVITY 1.2 CAL 1,000 ML BOTTLE GT PRN (19:45)
[2024-06-28 20:00] VITALS: BP 126/69; TEMP 98.2; O2SAT 96
[2024-06-29] VITALS (15 sets, daily range): BP systolic 91–133; BP diastolic 59–98; TEMP 97.7–98.2; O2SAT 94–100
[2024-06-29] MEDS ORDERED: POTASSIUM CHLORIDE 10 MEQ/50 ML PREMIXED IVPB FOR PERIPHERAL LINE IV ONE ×2 (02:00→03:00)
[2024-06-29] MEDS: POTASSIUM CHLORIDE 10 MEQ/50 ML PREMIXED IVPB FOR PERIPHERAL LINE IV SCH (02:59)
[2024-06-29] MEDS ORDERED: LORAZEPAM 0.5 MG TABLET NG PRN (06:44)
[2024-06-29] MEDS ORDERED: QUETIAPINE FUMARATE 100 MG TABLET NG SCH (06:50)
[2024-06-29] MEDS: MAGNESIUM HYDROXIDE 30 ML UDC NG PRN (08:44)
[2024-06-29] MEDS: LEVETIRACETAM SOL (5 ML) 100 MG/ML UDC NG SCH (08:45)
[2024-06-29] MEDS: CHOLECALCIFEROL 1,000 UNIT TABLET (VIT D3) NG SCH (08:46)
[2024-06-29] MEDS: PANTOPRAZOLE 40 MG/PACK PACK NG SCH (08:47)
[2024-06-29 08:48] LABS: BASOPHILS % (AUTO) 0.4 % (0.0-2.0); EOSINOPHILS # (AUTO) 0.5 K/uL (0.0-0.7); EOSINOPHILS % (AUTO) 5.1 % (0.0-6.0); HEMATOCRIT 31 % (39-51); HEMOGLOBIN 10.3 g/dL (13.5-17.5); LYMPHOCYTES # (AUTO) 1.8 K/uL (0.8-4.8); LYMPHOCYTES % (AUTO) 16.6 % (20.0-44.0); MEAN CORPUSCULAR HEMOGLOBIN 31 PG (26.0-33.0); MEAN CORPUSCULAR HGB CONC 34 g/dl (31.0-36.0); MEAN CORPUSCULAR VOLUME 93 fL (80-96); MONOCYTES # (AUTO) 0.8 K/uL (0.1-1.30); MONOCYTES % (AUTO) 7.7 % (2.0-12.0); NEUTROPHILS # (AUTO) 7.5 K/uL (1.8-8.9); NEUTROPHILS % (AUTO) 70.2 % (43.0-81.0); PLATELET COUNT (AUTO) 179 K/uL (150-450); RED BLOOD CELL COUNT(AUTO) 3.31 MIL/uL (4.5-6.0); WHITE BLOOD COUNT (AUTO) 10.7 K/uL (4.3-11.0)
[2024-06-29] MEDS: MULTIVITAMINS,THERAGRAN 1 UDTAB TABLET NG SCH (08:48)
[2024-06-29] MEDS: SENNOSIDES/DOCUSATE SODIUM 1 TAB TABLET NG SCH (08:48)
[2024-06-29] MEDS: METOPROLOL TARTRATE 50 MG TABLET NG SCH (08:48)
[2024-06-29] MEDS: BACLOFEN (10 MG) 10 MG TABLET NG SCH (08:48)
[2024-06-29] MEDS: AMLODIPINE BESYLATE 5 MG TABLET NG SCH (08:49)
[2024-06-29 09:07] LABS: CREATININE 0.9 mg/dL (0.6-1.3); MAGNESIUM 1.9 mg/dL (1.8-2.4); PHOSPHORUS 4.2 mg/dL (2.5-4.9)
[2024-06-29] MEDS: IV D5W 1,000 ML IV ONE (10:30)
[2024-06-29] MEDS: HYDROCODONE/APAP 5/325MG TABLET NG PRN (12:02)
[2024-06-29 17:34] LABS: CALCIUM, SERUM 10.2 mg/dL (8.5-10.1); POTASSIUM 3.4 mmol/L (3.5-5.1)
[2024-06-29] MEDS: LACTULOSE 10 G/15 ML UDC (PYXIS) PO ONE (18:12)
[2024-06-29 20:28] LABS: ABG BASE EXCESS -7.3 mmol/L (-2.0-3.0); ABG OXYGEN SATURATION 93.9 % (94.0-98.0); ABG PCO2 26.6 mmHg (35.0-48.0); ABG PH 7.401 (7.350-7.450); ABG PO2 73.8 mmHg (83.0-108.0); COHb 0.2 % (0.5-1.5); MetHb 0.3 % (0.0-1.5); O2Hb 93.4 % (94.0-97.0); SITE, ABG RIGHT RADIAL
[2024-06-29] MEDS: ATORVASTATIN 40 MG TABLET NG SCH (21:43)
[2024-06-29] MEDS: TAMSULOSIN 0.4 MG CAP.SR.24H NG SCH (21:43)
[2024-06-29] MEDS: SODIUM BICARBONATE SYR 50 MEQ/50 ML DISP.SYRIN IV ONE (21:53)
[2024-06-30] VITALS (46 sets, daily range): BP systolic 82–152; BP diastolic 51–139; TEMP 96.9–98.1; O2SAT 82–100
[2024-06-30 05:48] LABS: CALCIUM, SERUM 10.6 mg/dL (8.5-10.1); CREATININE 0.9 mg/dL (0.6-1.3); POTASSIUM 3.2 mmol/L (3.5-5.1)
[2024-06-30] MEDS: POTASSIUM CHLORIDE 20 MEQ POWDER PACKET GT ONE (06:48)
[2024-06-30] MEDS: IV D5W 1,000 ML IV ONE (09:18)
[2024-06-30 10:39] LABS: ABG BASE EXCESS -4.9 mmol/L (-2.0-3.0); ABG OXYGEN SATURATION 89.4 % (94.0-98.0); ABG PCO2 39.7 mmHg (35.0-48.0); ABG PH 7.332 (7.350-7.450); ABG PO2 62.4 mmHg (83.0-108.0); ABG TOTAL HEMOGLOBIN 11.3 G/dL (13.5-17.5); COHb 0.3 % (0.5-1.5); MetHb 0.2 % (0.0-1.5); SITE, ABG RIGHT RADIAL
[2024-06-30] MEDS ORDERED: LORAZEPAM 1 MG TABLET NG PRN (14:30)
[2024-06-30 15:13] LABS: CALCIUM, SERUM 10.4 mg/dL (8.5-10.1); CREATININE 0.8 mg/dL (0.6-1.3)
[2024-06-30] MEDS: VANCOMYCIN 1.5 GM in IV D5W 500 ML IV ONE (15:30)
[2024-06-30] MEDS ORDERED: ETOMIDATE 2 MG/ML VIAL IV ONE (18:28)
[2024-06-30] MEDS: BISACODYL SUPP (10 MG) 10 MG/SUPP.RECT SUPP.RECT RC PRN (21:17)
[2024-06-30] MEDS: NOREPINEPHRINE 8 MG in IV D5W 242 ML IV PRN (23:11)
[2024-06-30] MEDS: PROPOFOL 100 ML IV PRN (23:34)
[2024-07-01] VITALS (83 sets, daily range): BP systolic 81–136; BP diastolic 43–107; TEMP 96.9–98; O2SAT 89–100
[2024-07-01] MEDS: VANCOMYCIN 1 GM in IV D5W 250ml IV SCH (03:50)
[2024-07-01] MEDS: THERAHONEY GEL 1.5 OZ TUBE TP SCH (08:55)
[2024-07-01 10:17] LABS: ABG BASE EXCESS -4.9 mmol/L (-2.0-3.0); ABG OXYGEN SATURATION 96.4 % (94.0-98.0); ABG PCO2 30.6 mmHg (35.0-48.0); ABG PH 7.407 (7.350-7.450); ABG PO2 88.8 mmHg (83.0-108.0); ABG TOTAL HEMOGLOBIN 11.3 G/dL (13.5-17.5); COHb 0.3 % (0.5-1.5); MetHb 0.3 % (0.0-1.5); O2Hb 95.8 % (94.0-97.0); SITE, ABG Other
[2024-07-01 13:20] LABS: EOSINOPHILS # (AUTO) 0.7 K/uL (0.0-0.7); HEMOGLOBIN 10.5 g/dL (13.5-17.5); LYMPHOCYTES # (AUTO) 1.9 K/uL (0.8-4.8); MONOCYTES # (AUTO) 0.6 K/uL (0.1-1.30); WHITE BLOOD COUNT (AUTO) 11.6 K/uL (4.3-11.0)
[2024-07-01 13:35] LABS: BASOPHILS % (AUTO) 0.4 % (0.0-2.0); EOSINOPHILS % (AUTO) 5.9 % (0.0-6.0); HEMATOCRIT 31 % (39-51); LYMPHOCYTES % (AUTO) 16.6 % (20.0-44.0); MEAN CORPUSCULAR HEMOGLOBIN 31 PG (26.0-33.0); MEAN CORPUSCULAR HGB CONC 34 g/dl (31.0-36.0); MEAN CORPUSCULAR VOLUME 91 fL (80-96); MONOCYTES % (AUTO) 5.6 % (2.0-12.0); NEUTROPHILS # (AUTO) 8.3 K/uL (1.8-8.9); NEUTROPHILS % (AUTO) 71.5 % (43.0-81.0); PLATELET COUNT (AUTO) 209 K/uL (150-450); RED BLOOD CELL COUNT(AUTO) 3.44 MIL/uL (4.5-6.0); RED CELL DISTRIBUTION WIDTH 14.1 % (11.5-15.0)
[2024-07-01 13:40] LABS: CALCIUM, SERUM 10.9 mg/dL (8.5-10.1); MAGNESIUM 1.7 mg/dL (1.8-2.4); PHOSPHORUS 4.2 mg/dL (2.5-4.9)
[2024-07-01 13:45] LABS: POTASSIUM 2.4 mmol/L (3.5-5.1)
[2024-07-01 14:43] LABS: BASOPHILS % (MANUAL) 0 % (0.0-2.0); EOSINOPHILS % (MANUAL) 4 % (0-4); LYMPHOCYTES % (MANUAL) 17 % (16-48); MONOCYTES % (MANUAL) 4 % (0-11.0); NEUTROPHILS % (MANUAL) 75 (42-76); PLATELET ESTIMATE ADEQUATE
[2024-07-01] MEDS ORDERED: POTASSIUM CHLORIDE 20 MEQ POWDER PACKET GT SCH (15:00)
[2024-07-01] MEDS: POTASSIUM CHLORIDE 20 MEQ POWDER PACKET GT SCH (15:37)
[2024-07-02] VITALS (85 sets, daily range): BP systolic 92–149; BP diastolic 44–84; TEMP 97.8–98.3; O2SAT 88–100
[2024-07-02 05:22] LABS: CALCIUM, SERUM 10.6 mg/dL (8.5-10.1); CREATININE 0.8 mg/dL (0.6-1.3); MAGNESIUM 1.9 mg/dL (1.8-2.4); PHOSPHORUS 4.2 mg/dL (2.5-4.9)
[2024-07-02 05:40] LABS: BASOPHILS # (AUTO) 0.1 K/uL (0.0-0.2); BASOPHILS % (AUTO) 0.4 % (0.0-2.0); EOSINOPHILS # (AUTO) 0.8 K/uL (0.0-0.7); EOSINOPHILS % (AUTO) 6.1 % (0.0-6.0); HEMATOCRIT 30 % (39-51); HEMOGLOBIN 9.9 g/dL (13.5-17.5); MEAN CORPUSCULAR HEMOGLOBIN 30 PG (26.0-33.0); MEAN CORPUSCULAR HGB CONC 33 g/dl (31.0-36.0); MEAN CORPUSCULAR VOLUME 92 fL (80-96); MONOCYTES # (AUTO) 0.5 K/uL (0.1-1.30); MONOCYTES % (AUTO) 4.2 % (2.0-12.0); NEUTROPHILS # (AUTO) 9.6 K/uL (1.8-8.9); NEUTROPHILS % (AUTO) 74.3 % (43.0-81.0); PLATELET COUNT (AUTO) 216 K/uL (150-450); RED BLOOD CELL COUNT(AUTO) 3.26 MIL/uL (4.5-6.0); RED CELL DISTRIBUTION WIDTH 14.4 % (11.5-15.0)
[2024-07-02] MEDS: IV NS 0.9% 250 ML IV PRN (05:44)
[2024-07-02 06:04] LABS: POTASSIUM 2.2 mmol/L (3.5-5.1)
[2024-07-02] MEDS: POTASSIUM CHLORIDE 20 MEQ TAB.PRT.SR PO STA (08:38)
[2024-07-02 08:39] LABS: APPEARANCE,URINE CLEAR (CLEAR); BILIRUBIN,URINE NEGATIVE (NEGATIVE); BLOOD, URINE TRACE-INTA Ery/uL (NEGATIVE); COLOR,URINE YELLOW (YELLOW); KETONES,URINE NEGATIVE (NEGATIVE); LEUKOCYTE ESTERASE ,URINE NEGATIVE (NEGATIVE); NITRITE, URINE NEGATIVE (NEGATIVE); PH,URINE 6.5 (5.0-8.0); PROTEIN,URINE TRACE mg/dl (NEGATIVE); UGLUCOSE NEGATIVE (NEGATIVE); UROBILINOGEN,URINE 0.2 EU/dL (0.2)
[2024-07-02] MEDS: POTASSIUM CL. PREMIX PERIPHER. 50 ML IV SCH (09:44)
[2024-07-02 09:52] LABS: ADD URINE CULTURE NO; BACTERIA,URINE Rare /HPF (None Seen); SQUAMOUS EPITHELIAL CELL,UR Few /HPF (None Seen); WBC,URINE 0-2 /HPF (0-3)
[2024-07-02] MEDS: MODAFINIL 100 MG TABLET PO SCH (11:33)
[2024-07-02 15:07] LABS: INR 1.13 (0.91-1.10); PROTHROMBIN TIME 11.9 SECS (9.2-11.1)
[2024-07-02 16:09] LABS: CREATININE 0.8 mg/dL (0.6-1.3); POTASSIUM 3.9 mmol/L (3.5-5.1)
[2024-07-02] MEDS: VANCOMYCIN 750 MG in IV D5W 250 ML IV SCH (17:07)
[2024-07-03] VITALS (89 sets, daily range): BP systolic 85–144; BP diastolic 46–109; TEMP 97.2–97.8; O2SAT 90–100
[2024-07-03 08:10] LABS: BASOPHILS % (AUTO) 0.3 % (0.0-2.0); EOSINOPHILS # (AUTO) 0.8 K/uL (0.0-0.7); EOSINOPHILS % (AUTO) 4.8 % (0.0-6.0); HEMATOCRIT 29 % (39-51); HEMOGLOBIN 9.8 g/dL (13.5-17.5); LYMPHOCYTES # (AUTO) 1.9 K/uL (0.8-4.8); LYMPHOCYTES % (AUTO) 10.6 % (20.0-44.0); MEAN CORPUSCULAR HEMOGLOBIN 31 PG (26.0-33.0); MEAN CORPUSCULAR HGB CONC 33 g/dl (31.0-36.0); MEAN CORPUSCULAR VOLUME 93 fL (80-96); MONOCYTES # (AUTO) 0.5 K/uL (0.1-1.30); MONOCYTES % (AUTO) 2.8 % (2.0-12.0); NEUTROPHILS # (AUTO) 14.5 K/uL (1.8-8.9); NEUTROPHILS % (AUTO) 81.5 % (43.0-81.0); PLATELET COUNT (AUTO) 228 K/uL (150-450); RED BLOOD CELL COUNT(AUTO) 3.16 MIL/uL (4.5-6.0); RED CELL DISTRIBUTION WIDTH 14.5 % (11.5-15.0); WHITE BLOOD COUNT (AUTO) 17.8 K/uL (4.3-11.0)
[2024-07-03 08:25] LABS: CALCIUM, SERUM 10.1 mg/dL (8.5-10.1); CREATININE 0.9 mg/dL (0.6-1.3); MAGNESIUM 1.9 mg/dL (1.8-2.4); PHOSPHORUS 4.8 mg/dL (2.5-4.9)
[2024-07-03 08:34] LABS: POTASSIUM 2.8 mmol/L (3.5-5.1)
[2024-07-03] MEDS ORDERED: POTASSIUM CHLORIDE 20 MEQ POWDER PACKET GT ONE (10:30)
[2024-07-03] MEDS ORDERED: POTASSIUM CHLORIDE 20 MEQ POWDER PACKET GT SCH (11:00)
[2024-07-03] MEDS: POTASSIUM CL. PREMIX PERIPHER. 50 ML IV SCH (12:08)
[2024-07-03 15:17] LABS: CALCIUM, SERUM 10.4 mg/dL (8.5-10.1); CREATININE 0.9 mg/dL (0.6-1.3)
[2024-07-04] VITALS (81 sets, daily range): BP systolic 84–127; BP diastolic 42–73; TEMP 96.5–97.8; O2SAT 92–100
[2024-07-04 05:20] LABS: BASOPHILS % (AUTO) 0.2 % (0.0-2.0); EOSINOPHILS # (AUTO) 0.8 K/uL (0.0-0.7); EOSINOPHILS % (AUTO) 4.6 % (0.0-6.0); HEMATOCRIT 29 % (39-51); HEMOGLOBIN 9.6 g/dL (13.5-17.5); LYMPHOCYTES # (AUTO) 1.7 K/uL (0.8-4.8); LYMPHOCYTES % (AUTO) 10.2 % (20.0-44.0); MEAN CORPUSCULAR HEMOGLOBIN 31 PG (26.0-33.0); MEAN CORPUSCULAR HGB CONC 33 g/dl (31.0-36.0); MEAN CORPUSCULAR VOLUME 93 fL (80-96); MONOCYTES # (AUTO) 0.4 K/uL (0.1-1.30); MONOCYTES % (AUTO) 2.2 % (2.0-12.0); NEUTROPHILS # (AUTO) 14.1 K/uL (1.8-8.9); NEUTROPHILS % (AUTO) 82.8 % (43.0-81.0); PLATELET COUNT (AUTO) 221 K/uL (150-450); RED BLOOD CELL COUNT(AUTO) 3.16 MIL/uL (4.5-6.0); RED CELL DISTRIBUTION WIDTH 14.6 % (11.5-15.0)
[2024-07-04 05:41] LABS: CREATININE 0.7 mg/dL (0.6-1.3); MAGNESIUM 2.1 mg/dL (1.8-2.4); PHOSPHORUS 5.6 mg/dL (2.5-4.9)
[2024-07-04 05:56] LABS: CALCIUM, SERUM 1.9 mg/dL (8.5-10.1)
[2024-07-04] MEDS: METRONIDAZOLE 500MG/ NS 100ML 500 MG in PREMIX 1 EA IV SCH (07:39)
[2024-07-04] MEDS: JEVITY 1.2 CAL 1,000 ML BOTTLE GT PRN (08:54)
[2024-07-04] MEDS: POTASSIUM CHLORIDE 20 MEQ POWDER PACKET GT SCH (10:31)
[2024-07-04] MEDS: MEROPENEM 2 G in IV NS 0.9% 100 ML IV SCH (13:18)
[2024-07-04 14:21] LABS: CREATININE 0.8 mg/dL (0.6-1.3); POTASSIUM 2.9 mmol/L (3.5-5.1)
[2024-07-04 14:27] LABS: CALCIUM, SERUM 10.3 mg/dL (8.5-10.1)
[2024-07-05] VITALS (75 sets, daily range): BP systolic 80–153; BP diastolic 47–77; TEMP 97–98.6; O2SAT 79–100
[2024-07-05 05:34] LABS: BASOPHILS # (AUTO) 0.1 K/uL (0.0-0.2); BASOPHILS % (AUTO) 0.3 % (0.0-2.0); EOSINOPHILS # (AUTO) 0.8 K/uL (0.0-0.7); EOSINOPHILS % (AUTO) 3.8 % (0.0-6.0); HEMATOCRIT 28 % (39-51); HEMOGLOBIN 9.1 g/dL (13.5-17.5); LYMPHOCYTES % (AUTO) 9.7 % (20.0-44.0); MEAN CORPUSCULAR HEMOGLOBIN 30 PG (26.0-33.0); MEAN CORPUSCULAR HGB CONC 32 g/dl (31.0-36.0); MEAN CORPUSCULAR VOLUME 94 fL (80-96); MONOCYTES # (AUTO) 0.4 K/uL (0.1-1.30); MONOCYTES % (AUTO) 1.9 % (2.0-12.0); NEUTROPHILS # (AUTO) 17.1 K/uL (1.8-8.9); NEUTROPHILS % (AUTO) 84.3 % (43.0-81.0); PLATELET COUNT (AUTO) 216 K/uL (150-450); RED BLOOD CELL COUNT(AUTO) 3.01 MIL/uL (4.5-6.0); WHITE BLOOD COUNT (AUTO) 20.3 K/uL (4.3-11.0)
[2024-07-05 06:01] LABS: CALCIUM, SERUM 10.3 mg/dL (8.5-10.1); CREATININE 0.8 mg/dL (0.6-1.3); MAGNESIUM 2.1 mg/dL (1.8-2.4); PHOSPHORUS 4.6 mg/dL (2.5-4.9)
[2024-07-05] MEDS: POTASSIUM CHLORIDE 20 MEQ POWDER PACKET NG SCH (10:05)
[2024-07-05] MEDS: MEROPENEM 1 G in IV NS 0.9% 100 ML IV SCH (12:57)
[2024-07-06] VITALS (26 sets, daily range): BP systolic 88–113; BP diastolic 43–63; TEMP 97.6–98.1; O2SAT 94–100
[2024-07-06 08:56] LABS: CALCIUM, SERUM 10.5 mg/dL (8.5-10.1); POTASSIUM 3.5 mmol/L (3.5-5.1)
[2024-07-06 10:56] LABS: BASOPHILS # (AUTO) 0.1 K/uL (0.0-0.2); BASOPHILS % (AUTO) 0.4 % (0.0-2.0); EOSINOPHILS # (AUTO) 0.5 K/uL (0.0-0.7); EOSINOPHILS % (AUTO) 2.9 % (0.0-6.0); HEMATOCRIT 26 % (39-51); HEMOGLOBIN 8.4 g/dL (13.5-17.5); LYMPHOCYTES # (AUTO) 1.8 K/uL (0.8-4.8); MEAN CORPUSCULAR HEMOGLOBIN 31 PG (26.0-33.0); MEAN CORPUSCULAR HGB CONC 32 g/dl (31.0-36.0); MEAN CORPUSCULAR VOLUME 96 fL (80-96); MONOCYTES # (AUTO) 0.4 K/uL (0.1-1.30); MONOCYTES % (AUTO) 2.8 % (2.0-12.0); NEUTROPHILS # (AUTO) 13.3 K/uL (1.8-8.9); NEUTROPHILS % (AUTO) 82.9 % (43.0-81.0); PLATELET COUNT (AUTO) 212 K/uL (150-450); RED BLOOD CELL COUNT(AUTO) 2.71 MIL/uL (4.5-6.0); RED CELL DISTRIBUTION WIDTH 15.2 % (11.5-15.0); WHITE BLOOD COUNT (AUTO) 16.1 K/uL (4.3-11.0)
[2024-07-07] VITALS (44 sets, daily range): BP systolic 91–121; BP diastolic 45–69; TEMP 96.4–98.1; O2SAT 88–100
[2024-07-07] MEDS ORDERED: VANCOMYCIN 750 MG in IV D5W 250 ML IV SCH (03:00)
[2024-07-07 04:56] LABS: BASOPHILS # (AUTO) 0.1 K/uL (0.0-0.2); BASOPHILS % (AUTO) 0.4 % (0.0-2.0); EOSINOPHILS # (AUTO) 0.4 K/uL (0.0-0.7); EOSINOPHILS % (AUTO) 2.8 % (0.0-6.0); HEMATOCRIT 26 % (39-51); HEMOGLOBIN 8.5 g/dL (13.5-17.5); LYMPHOCYTES % (AUTO) 13.7 % (20.0-44.0); MEAN CORPUSCULAR HEMOGLOBIN 31 PG (26.0-33.0); MEAN CORPUSCULAR HGB CONC 33 g/dl (31.0-36.0); MEAN CORPUSCULAR VOLUME 93 fL (80-96); MONOCYTES # (AUTO) 0.5 K/uL (0.1-1.30); MONOCYTES % (AUTO) 3.4 % (2.0-12.0); NEUTROPHILS # (AUTO) 11.8 K/uL (1.8-8.9); NEUTROPHILS % (AUTO) 79.7 % (43.0-81.0); PLATELET COUNT (AUTO) 223 K/uL (150-450); RED BLOOD CELL COUNT(AUTO) 2.78 MIL/uL (4.5-6.0); RED CELL DISTRIBUTION WIDTH 14.8 % (11.5-15.0); WHITE BLOOD COUNT (AUTO) 14.8 K/uL (4.3-11.0)
[2024-07-07] MEDS: VANCOMYCIN 1 GM in IV D5W 250ml IV SCH ×2 (05:07→14:06)
[2024-07-07 05:24] LABS: MAGNESIUM 1.8 mg/dL (1.8-2.4); PHOSPHORUS 4.5 mg/dL (2.5-4.9)
[2024-07-07 05:32] LABS: POTASSIUM 2.8 mmol/L (3.5-5.1)
[2024-07-07] MEDS: POTASSIUM CL. PREMIX PERIPHER. 50 ML IV ONE (05:56)
[2024-07-07] MEDS ORDERED: POTASSIUM CHLORIDE 10 MEQ/50 ML PREMIXED IVPB FOR PERIPHERAL LINE IV ONE ×2 (06:00)
[2024-07-07] MEDS: POTASSIUM CHLORIDE 20 MEQ POWDER PACKET NG ONE ×2 (08:58→17:53)
[2024-07-07] MEDS: IV D5W 1,000 ML IV SCH (09:16)
[2024-07-07 16:42] LABS: CALCIUM, SERUM 10.2 mg/dL (8.5-10.1); CREATININE 1.1 mg/dL (0.6-1.3)
[2024-07-08] VITALS (20 sets, daily range): BP systolic 98–147; BP diastolic 54–73; TEMP 96.7–98; O2SAT 92–100
[2024-07-08 05:35] LABS: CALCIUM, SERUM 10.2 mg/dL (8.5-10.1); POTASSIUM 3.1 mmol/L (3.5-5.1)
[2024-07-08] MEDS: POTASSIUM CHLORIDE 20 MEQ TAB.PRT.SR PO ONE (08:07)
[2024-07-08] MEDS ORDERED: POTASSIUM CL. PREMIX PERIPHER. 10 MEQ in IV D5W 1,000 ML IV SCH ×2 (08:30→21:00)
[2024-07-08] MEDS: IV D5W W/10 MEQ KCL 1L IV SCH (09:06)
[2024-07-08] MEDS ORDERED: IV D5W W/10 MEQ KCL 1L IV SCH (22:00)
[2024-07-09] MEDS ORDERED: FLUCONAZOLE IN NS,PREMIX 400 MG in PREMIX 1 EA IV SCH ×3 (11:00→15:00)
== END 2024-07-08 20:43 | disposition short-term general hospital (02) | DRG 721 ==
LOC: MEDSG1 06-19 20:33 → TELE1 06-19 23:59 → ICU 06-25 12:54 → TELE-TD 06-27 17:55 → ICU 06-29 20:45
PROVIDERS: ADMIT Nurse Practitioner Family; ATTEND Nurse Practitioner Acute Care
PROC: 5A1955Z Respiratory Ventilation, Greater than 96 Consecutive Hours (ICD-10-PCS; principal; 2024-06-30)
PROC: 0BH17EZ Insertion of Endotracheal Airway into Trachea, Via Natural or Artificial Opening (ICD-10-PCS; 2024-06-30)
DX: T85.730A Infection and inflammatory reaction due to ventricular intracranial (communicating) shunt, initial encounter (principal); B38.4 Coccidioidomycosis meningitis; J96.01 Acute respiratory failure with hypoxia; N17.0 Acute kidney failure with tubular necrosis; B48.8 Other specified mycoses; G91.1 Obstructive hydrocephalus; L89.156 Pressure-induced deep tissue damage of sacral region; G82.20 Paraplegia, unspecified; E87.0 Hyperosmolality and hypernatremia; G93.40 Encephalopathy, unspecified; F29 Unspecified psychosis not due to a substance or known physiological condition; R62.7 Adult failure to thrive; D57.3 Sickle-cell trait; G93.89 Other specified disorders of brain; Z20.822 Contact with and (suspected) exposure to COVID-19; I10 Essential (primary) hypertension; Z98.2 Presence of cerebrospinal fluid drainage device; Z98.1 Arthrodesis status; Z86.61 Personal history of infections of the central nervous system; Z87.440 Personal history of urinary (tract) infections; Z86.73 Personal history of transient ischemic attack (TIA), and cerebral infarction without residual deficits; N28.9 Disorder of kidney and ureter, unspecified; N40.0 Benign prostatic hyperplasia without lower urinary tract symptoms; E87.6 Hypokalemia; E83.52 Hypercalcemia; E86.1 Hypovolemia; E86.0 Dehydration; I48.0 Paroxysmal atrial fibrillation; K56.41 Fecal impaction; M20.092 Other deformity of left finger(s); N39.0 Urinary tract infection, site not specified; G40.909 Epilepsy, unspecified, not intractable, without status epilepticus; B96.89 Other specified bacterial agents as the cause of diseases classified elsewhere; Y95 Nosocomial condition; J18.9 Pneumonia, unspecified organism; Y83.8 Other surgical procedures as the cause of abnormal reaction of the patient, or of later complication, without mention of misadventure at the time of the procedure; Y92.129 Unspecified place in nursing home as the place of occurrence of the external cause
CPT/HCPCS: 31720; 36415; 36600; 38221; 70450-TC; 71045-TC; 74018; 76705-TC; 76770-TC; 80048-TC; 80053-TC; 80177; 80202-TC; 81001; 82140-TC; 82550-TC; 82570-TC; 82803-TC; 82962-TC; 83735-TC; 83970; 84100-TC; 84132-TC; 84155; 84165; 84300-TC; 85025-TC; 85610-TC; 87040-TC; 87081-TC; 87086-TC; 92526; 92611-TC; 94002-TC; 94003-TC; 94640-TC; 94660; 94760-TC; 94762-TC; 94799-TC; 99082-TC; A4216; A4223; G0378; J0360; J0692; J1450; J1644; J1953; J2185; J3370; J3371; J3475; J3480; J3490; J7030; J7040; J7042; J7050; J7060; J7070

== ENCOUNTER 2024-08-06 11:20 | Inpatient (IN) | payer OTHER ==
[~2024-08-06] VITALS: Ht 175.3 cm; Wt 95.3 kg
[~2024-08-06 11:20] MED LIST changes: -ACET-637 PO; -ACET325T53 PO; +AMLO10TA4 PO; +ATOR40TA PO; +BACL20TA GT; -BISA10SU11 RC; -CEFE1VIA3 IV; +CHOL200059 PO; +FLUC200T8 PO; -GENT5DRO23 RIGHTEYE; +HEPA500039 SQ; +LEVE100023 GT; -LINE600T12 PO; +LORA-259 PO; -LORA10TA7 PO; -MAG30ORA PO; -MAGN400O6 PO; -MEGE400O5 PO; +METO50TA16 GT; +MULT-213 PO; -NA P133E RC; +NALO4SPR NS; -ONDA-97 PO; +PANT40TA2 PO; +QUET300T2 PO; -TIZA4TAB5 PO; +[UNRECOGNIZED DRUG - CODE] GT
[2024-08-06 21:00] VITALS: BP 126/91; TEMP 99.1; O2SAT 98
[2024-08-06 21:30] VITALS: O2SAT 98
[2024-08-07] VITALS (12 sets, daily range): BP systolic 101–133; BP diastolic 88–99; TEMP 98.1–99.1; O2SAT 96–100
[2024-08-07] MEDS ORDERED: MAGNESIUM HYDROXIDE 30 ML UDC GT PRN (01:30)
[2024-08-07] MEDS ORDERED: ONDANSETRON HCL/PF 4 MG/2 ML VIAL IVP PRN (01:30)
[2024-08-07 06:26] LABS: BASOPHILS # (AUTO) 0.1 K/uL (0.0-0.2); BASOPHILS % (AUTO) 0.6 % (0.0-2.0); EOSINOPHILS # (AUTO) 0.8 K/uL (0.0-0.7); EOSINOPHILS % (AUTO) 7.6 % (0.0-6.0); HEMATOCRIT 31 % (39-51); HEMOGLOBIN 10.1 g/dL (13.5-17.5); LYMPHOCYTES # (AUTO) 2.1 K/uL (0.8-4.8); LYMPHOCYTES % (AUTO) 20.2 % (20.0-44.0); MEAN CORPUSCULAR HEMOGLOBIN 32 PG (26.0-33.0); MEAN CORPUSCULAR HGB CONC 33 g/dl (31.0-36.0); MEAN CORPUSCULAR VOLUME 95 fL (80-96); MONOCYTES # (AUTO) 0.7 K/uL (0.1-1.30); MONOCYTES % (AUTO) 7.4 % (2.0-12.0); NEUTROPHILS # (AUTO) 6.5 K/uL (1.8-8.9); NEUTROPHILS % (AUTO) 64.2 % (43.0-81.0); PLATELET COUNT (AUTO) 173 K/uL (150-450); RED BLOOD CELL COUNT(AUTO) 3.21 MIL/uL (4.5-6.0); RED CELL DISTRIBUTION WIDTH 15.4 % (11.5-15.0); WHITE BLOOD COUNT (AUTO) 10.1 K/uL (4.3-11.0)
[2024-08-07 06:31] LABS: ALBUMIN 2.7 g/dL (3.4-5.0); BILIRUBIN,TOTAL 0.3 mg/dL (0.2-1.0); CALCIUM, SERUM 10.3 mg/dL (8.5-10.1); CREATININE 0.7 mg/dL (0.6-1.3); MAGNESIUM 1.9 mg/dL (1.8-2.4); POTASSIUM 4.1 mmol/L (3.5-5.1); TOTAL PROTEIN, SERUM 8.8 g/dL (6.4-8.2)
[2024-08-07] MEDS: NEOMY SULF/BACITRAC ZN/POLY 15 GM TUBE TP SCH (09:38)
[2024-08-07] MEDS ORDERED: POLY15DR40 EACHEYE (12:06)
[2024-08-07] MEDS ORDERED: BENA10TA74 GT (12:06)
[2024-08-07] MEDS ORDERED: IPRA3AMP23 IH (12:06)
[2024-08-07] MEDS ORDERED: FAMO20TA8 GT (12:06)
[2024-08-07] MEDS ORDERED: SENN-301 GT (12:06)
[2024-08-07] MEDS ORDERED: FOLI0.8T3 GT (12:06)
[2024-08-07] MEDS ORDERED: CHLO473M5 PO (12:06)
[2024-08-07] MEDS ORDERED: ACET325T53 PO (12:06)
[2024-08-07] MEDS ORDERED: BISA10SU11 RC (12:06)
[2024-08-07] MEDS ORDERED: ACET100V4 NEB (12:06)
[2024-08-07] MEDS ORDERED: ACETAMINOPHEN 325 MG TABLET PO PRN (13:00)
[2024-08-07] MEDS ORDERED: BISACODYL SUPP (10 MG) 10 MG/SUPP.RECT SUPP.RECT RC PRN (13:00)
[2024-08-07] MEDS ORDERED: ACETYLCYSTEINE 10% 3,000 MG/30 ML VIAL IH PRN (13:00)
[2024-08-07] MEDS ORDERED: POLYVINYL ALCOHOL 15 ML BOTTLE OP PRN (13:30)
[2024-08-07] MEDS: MULTIVIT W/MINERALS 1 TAB TABLET PO SCH (13:31)
[2024-08-07] MEDS: LEVETIRACETAM SOL (5 ML) 100 MG/ML UDC GT SCH (13:31)
[2024-08-07] MEDS: FOLIC ACID 1 MG TABLET GT SCH (13:31)
[2024-08-07] MEDS: BACLOFEN (10 MG) 10 MG TABLET GT SCH (13:32)
[2024-08-07] MEDS: ACETAMINOPHEN 325 MG TABLET MC PRN (14:14)
[2024-08-07] MEDS: FAMOTIDINE (20 MG) 20 MG TABLET GT SCH (16:32)
[2024-08-07] MEDS: METOPROLOL TARTRATE 50 MG TABLET GT SCH (16:34)
[2024-08-07] MEDS: VORICONAZOLE 200 MG TABLET GT SCH (16:45)
[2024-08-07] MEDS: THERAHONEY GEL 1.5 OZ TUBE TP SCH (17:30)
[2024-08-07] MEDS: QUETIAPINE FUMARATE 100 MG TABLET PO SCH (22:00)
[2024-08-08] VITALS (9 sets, daily range): BP systolic 109–134; BP diastolic 70–93; TEMP 97.9–99.1; O2SAT 96–100
[2024-08-08] MEDS: ATORVASTATIN 40 MG TABLET PO SCH (09:03)
[2024-08-08] MEDS: SENNOSIDES 8.6 MG TABLET GT SCH (09:08)
[2024-08-08] MEDS: BENAZEPRIL HCL 10 MG TABLET GT SCH (09:41)
[2024-08-08] MEDS: JEVITY 1.2 CAL 1,000 ML BOTTLE GT PRN (09:44)
[2024-08-09] VITALS (31 sets, daily range): BP systolic 57–151; BP diastolic 39–109; TEMP 97.2–98.8; O2SAT 95–99
[2024-08-09] MEDS: ALBUTEROL FS 2.5 MG/3 ML VIAL.NEB NEB PRN (15:28)
[2024-08-09] MEDS: IPRATROPIUM NEB FS 0.5 MG/2.5 ML AMPUL.NEB NEB PRN (15:28)
[2024-08-09] MEDS: IV NS 0.9% 1,000 ML IV ONE (16:37)
[2024-08-09] MEDS ORDERED: NOREPINEPHRINE 32 MG in IV NS 0.9% 218 ML IV PRN (17:30)
[2024-08-09 17:50] LABS: BASOPHILS % (AUTO) 0.3 % (0.0-2.0); EOSINOPHILS # (AUTO) 0.3 K/uL (0.0-0.7); EOSINOPHILS % (AUTO) 2.1 % (0.0-6.0); HEMATOCRIT 34 % (39-51); HEMOGLOBIN 10.7 g/dL (13.5-17.5); LYMPHOCYTES % (AUTO) 6.4 % (20.0-44.0); MEAN CORPUSCULAR HEMOGLOBIN 31 PG (26.0-33.0); MEAN CORPUSCULAR HGB CONC 32 g/dl (31.0-36.0); MEAN CORPUSCULAR VOLUME 97 fL (80-96); MONOCYTES # (AUTO) 0.9 K/uL (0.1-1.30); MONOCYTES % (AUTO) 5.8 % (2.0-12.0); NEUTROPHILS # (AUTO) 13.7 K/uL (1.8-8.9); NEUTROPHILS % (AUTO) 85.4 % (43.0-81.0); PLATELET COUNT (AUTO) 165 K/uL (150-450); RED BLOOD CELL COUNT(AUTO) 3.47 MIL/uL (4.5-6.0); RED CELL DISTRIBUTION WIDTH 16.2 % (11.5-15.0)
[2024-08-09 17:57] LABS: CALCIUM, SERUM 9.8 mg/dL (8.5-10.1); CREATININE 1.6 mg/dL (0.6-1.3); POTASSIUM 4.1 mmol/L (3.5-5.1)
[2024-08-09] MEDS ORDERED: NOREPINEPHRINE 8 MG in IV D5W 242 ML IV PRN (18:30)
[2024-08-09] MEDS: NOREPINEPHRINE 8 MG in IV D5W 242 ML IV PRN (19:52)
[2024-08-10] VITALS (101 sets, daily range): BP systolic 66–134; BP diastolic 44–97; TEMP 97.8–101; O2SAT 96–100
[2024-08-10 05:09] LABS: BASOPHILS % (AUTO) 0.4 % (0.0-2.0); EOSINOPHILS # (AUTO) 0.3 K/uL (0.0-0.7); EOSINOPHILS % (AUTO) 2.5 % (0.0-6.0); HEMATOCRIT 28 % (39-51); HEMOGLOBIN 9.4 g/dL (13.5-17.5); LYMPHOCYTES # (AUTO) 1.2 K/uL (0.8-4.8); MEAN CORPUSCULAR HEMOGLOBIN 32 PG (26.0-33.0); MEAN CORPUSCULAR HGB CONC 34 g/dl (31.0-36.0); MEAN CORPUSCULAR VOLUME 95 fL (80-96); MONOCYTES # (AUTO) 1.1 K/uL (0.1-1.30); MONOCYTES % (AUTO) 8.8 % (2.0-12.0); NEUTROPHILS # (AUTO) 9.5 K/uL (1.8-8.9); NEUTROPHILS % (AUTO) 78.3 % (43.0-81.0); PLATELET COUNT (AUTO) 163 K/uL (150-450); RED BLOOD CELL COUNT(AUTO) 2.93 MIL/uL (4.5-6.0); RED CELL DISTRIBUTION WIDTH 15.9 % (11.5-15.0); WHITE BLOOD COUNT (AUTO) 12.1 K/uL (4.3-11.0)
[2024-08-10 05:27] LABS: CALCIUM, SERUM 9.3 mg/dL (8.5-10.1); CREATININE 2.1 mg/dL (0.6-1.3); MAGNESIUM 2.1 mg/dL (1.8-2.4); PHOSPHORUS 4.4 mg/dL (2.5-4.9); POTASSIUM 3.8 mmol/L (3.5-5.1)
[2024-08-10] MEDS ORDERED: MEROPENEM 500 MG in IV NS 0.9% 50 ML IV SCH (09:30)
[2024-08-10] MEDS: IV 1/2NS 1000 ML 1,000 ML IV PRN (10:10)
[2024-08-10] MEDS: MEROPENEM 1 G in IV NS 0.9% 100 ML IV SCH (12:09)
[2024-08-10 17:16] LABS: CALCIUM, SERUM 9.1 mg/dL (8.5-10.1); CREATININE 1.7 mg/dL (0.6-1.3); POTASSIUM 3.5 mmol/L (3.5-5.1)
[2024-08-10 17:34] LABS: APPEARANCE,URINE CLEAR (CLEAR); BILIRUBIN,URINE NEGATIVE (NEGATIVE); BLOOD, URINE 3+ Ery/uL (NEGATIVE); COLOR,URINE YELLOW (YELLOW); KETONES,URINE NEGATIVE (NEGATIVE); LEUKOCYTE ESTERASE ,URINE 1+ (NEGATIVE); NITRITE, URINE NEGATIVE (NEGATIVE); PH,URINE 5.5 (5.0-8.0); PROTEIN,URINE 1+ mg/dl (NEGATIVE); UGLUCOSE NEGATIVE (NEGATIVE)
[2024-08-10 17:50] LABS: ADD URINE CULTURE YES; BACTERIA,URINE 3+ /HPF (None Seen)
[2024-08-10 17:51] LABS: COARSE GRANULAR CASTS,URINE Rare /LPF (None Seen)
[2024-08-10 18:02] LABS: CREATININE, URINE 75.8 MG/DL (30.0-125.0); URINE TOTAL PROTEIN 113.3 mg/dL (0-11.9)
[2024-08-10 18:31] LABS: EOSINOPHIL,URINE None Seen
[2024-08-10] MEDS: QUETIAPINE FUMARATE 100 MG TABLET GT SCH (21:50)
[2024-08-11] VITALS (73 sets, daily range): BP systolic 75–133; BP diastolic 53–107; TEMP 98.4–99; O2SAT 95–99
[2024-08-11 04:46] LABS: BASOPHILS % (AUTO) 0.3 % (0.0-2.0); EOSINOPHILS # (AUTO) 1.1 K/uL (0.0-0.7); EOSINOPHILS % (AUTO) 9.9 % (0.0-6.0); HEMATOCRIT 26 % (39-51); HEMOGLOBIN 8.7 g/dL (13.5-17.5); LYMPHOCYTES # (AUTO) 1.4 K/uL (0.8-4.8); MEAN CORPUSCULAR HEMOGLOBIN 32 PG (26.0-33.0); MEAN CORPUSCULAR HGB CONC 33 g/dl (31.0-36.0); MEAN CORPUSCULAR VOLUME 96 fL (80-96); MONOCYTES # (AUTO) 1.1 K/uL (0.1-1.30); MONOCYTES % (AUTO) 9.4 % (2.0-12.0); NEUTROPHILS # (AUTO) 7.8 K/uL (1.8-8.9); NEUTROPHILS % (AUTO) 68.4 % (43.0-81.0); PLATELET COUNT (AUTO) 164 K/uL (150-450); RED BLOOD CELL COUNT(AUTO) 2.74 MIL/uL (4.5-6.0); WHITE BLOOD COUNT (AUTO) 11.4 K/uL (4.3-11.0)
[2024-08-11 05:00] LABS: ALBUMIN 2.3 g/dL (3.4-5.0); BILIRUBIN,TOTAL 0.5 mg/dL (0.2-1.0); CALCIUM, SERUM 9.1 mg/dL (8.5-10.1); CREATININE 1.3 mg/dL (0.6-1.3); MAGNESIUM 1.9 mg/dL (1.8-2.4); PHOSPHORUS 3.3 mg/dL (2.5-4.9); POTASSIUM 3.9 mmol/L (3.5-5.1); TOTAL PROTEIN, SERUM 7.1 g/dL (6.4-8.2)
[2024-08-11] MEDS: MULTIVIT W/MINERALS 1 TAB TABLET GT SCH (08:32)
[2024-08-11] MEDS: ATORVASTATIN 40 MG TABLET GT SCH (08:33)
[2024-08-11] MEDS: IV NS 0.9% 250 ML IV PRN (20:06)
[2024-08-11] MEDS: BACLOFEN (10 MG) 10 MG TABLET ONE (23:12)
[2024-08-12] VITALS (22 sets, daily range): BP systolic 99–129; BP diastolic 66–98; TEMP 98.4–98.8; O2SAT 95–100
[2024-08-12 04:25] LABS: BASOPHILS % (AUTO) 0.1 % (0.0-2.0); EOSINOPHILS # (AUTO) 0.8 K/uL (0.0-0.7); HEMATOCRIT 25 % (39-51); HEMOGLOBIN 8.3 g/dL (13.5-17.5); LYMPHOCYTES # (AUTO) 1.7 K/uL (0.8-4.8); LYMPHOCYTES % (AUTO) 15.7 % (20.0-44.0); MEAN CORPUSCULAR HEMOGLOBIN 32 PG (26.0-33.0); MEAN CORPUSCULAR HGB CONC 33 g/dl (31.0-36.0); MEAN CORPUSCULAR VOLUME 96 fL (80-96); MONOCYTES # (AUTO) 0.8 K/uL (0.1-1.30); MONOCYTES % (AUTO) 7.7 % (2.0-12.0); NEUTROPHILS # (AUTO) 7.6 K/uL (1.8-8.9); NEUTROPHILS % (AUTO) 69.5 % (43.0-81.0); PLATELET COUNT (AUTO) 149 K/uL (150-450); RED BLOOD CELL COUNT(AUTO) 2.59 MIL/uL (4.5-6.0); RED CELL DISTRIBUTION WIDTH 15.6 % (11.5-15.0); WHITE BLOOD COUNT (AUTO) 10.9 K/uL (4.3-11.0)
[2024-08-12 05:07] LABS: CALCIUM, SERUM 8.9 mg/dL (8.5-10.1); CREATININE 0.8 mg/dL (0.6-1.3); MAGNESIUM 1.7 mg/dL (1.8-2.4); PHOSPHORUS 3.1 mg/dL (2.5-4.9); POTASSIUM 3.3 mmol/L (3.5-5.1)
[2024-08-12] MEDS: POTASSIUM CHLORIDE 20 MEQ TAB.PRT.SR PO ONE (09:06)
[2024-08-12] MEDS: MAGNESIUM OXIDE 400 MG TABLET NG ONE (09:11)
[2024-08-13] VITALS (9 sets, daily range): BP systolic 118–131; BP diastolic 85–98; TEMP 98.2–99; O2SAT 97–100
[2024-08-13 07:59] LABS: BASOPHILS % (AUTO) 0.3 % (0.0-2.0); EOSINOPHILS # (AUTO) 0.5 K/uL (0.0-0.7); EOSINOPHILS % (AUTO) 6.2 % (0.0-6.0); HEMATOCRIT 26 % (39-51); HEMOGLOBIN 8.3 g/dL (13.5-17.5); LYMPHOCYTES # (AUTO) 1.8 K/uL (0.8-4.8); LYMPHOCYTES % (AUTO) 19.9 % (20.0-44.0); MEAN CORPUSCULAR HEMOGLOBIN 31 PG (26.0-33.0); MEAN CORPUSCULAR HGB CONC 33 g/dl (31.0-36.0); MEAN CORPUSCULAR VOLUME 95 fL (80-96); MONOCYTES # (AUTO) 0.7 K/uL (0.1-1.30); MONOCYTES % (AUTO) 8.5 % (2.0-12.0); NEUTROPHILS # (AUTO) 5.7 K/uL (1.8-8.9); NEUTROPHILS % (AUTO) 65.1 % (43.0-81.0); PLATELET COUNT (AUTO) 168 K/uL (150-450); RED BLOOD CELL COUNT(AUTO) 2.68 MIL/uL (4.5-6.0); RED CELL DISTRIBUTION WIDTH 15.2 % (11.5-15.0); WHITE BLOOD COUNT (AUTO) 8.8 K/uL (4.3-11.0)
[2024-08-13 08:32] LABS: CREATININE 0.6 mg/dL (0.6-1.3); MAGNESIUM 1.7 mg/dL (1.8-2.4); PHOSPHORUS 3.7 mg/dL (2.5-4.9); POTASSIUM 3.6 mmol/L (3.5-5.1)
[2024-08-13] MEDS: MAGNESIUM OXIDE 400 MG TABLET NG ONE (10:40)
[2024-08-13 12:06] LABS: PTH, INTACT 14 pg/mL (15-65)
[2024-08-13 15:10] LABS: *SPE A/G RATIO 0.6 (0.7-1.7); *SPE ALBUMIN 2.4 g/dL (2.9-4.4); *SPE ALPHA-1-GLOBULIN 0.5 g/dL (0.0-0.4); *SPE ALPHA-2-GLOBULIN 0.9 g/dL (0.4-1.0); *SPE GLOBULIN, TOTAL 3.9 g/dL (2.2-3.9); *SPE M-SPIKE Not Observed g/dL (Not Observed); *SPE PROTEIN TOTAL 6.3 g/dL (6.0-8.5); *SPEGAMMA GLOBULIN 1.5 g/dL (0.4-1.8)
[2024-08-14] VITALS (12 sets, daily range): BP systolic 119–133; BP diastolic 79–115; TEMP 98.6–99.3; O2SAT 94–99
[2024-08-15] VITALS (12 sets, daily range): BP systolic 115–143; BP diastolic 78–102; TEMP 96.5–99; O2SAT 94–99
[2024-08-16] VITALS: BP 120/81; TEMP 98.5; O2SAT 99
[2024-08-16 04:00] VITALS: BP 125/80; TEMP 98.6; O2SAT 99
[2024-08-16 07:33] VITALS: O2SAT 98
[2024-08-16 08:00] VITALS: BP 115/89; TEMP 97.7; O2SAT 98
[2024-08-16 12:00] VITALS: BP 109/77; TEMP 98; O2SAT 98
== END 2024-08-16 12:55 | DRG 50 ==
LOC: MEDSG1 20:34 → ICU 08-09 18:42 → TELE-TD 08-12 13:42 → MEDSG1 08-13 10:11 → TELE1 08-13 21:05
PROVIDERS: ATTEND Nurse Practitioner Acute Care
PROC: 5A1935Z Respiratory Ventilation, Less than 24 Consecutive Hours (ICD-10-PCS; 2024-08-09)
PROC: 05H933Z Insertion of Infusion Device into Right Brachial Vein, Percutaneous Approach (ICD-10-PCS; principal; 2024-08-10)
DX: B38.4 Coccidioidomycosis meningitis (principal); J96.21 Acute and chronic respiratory failure with hypoxia; G91.1 Obstructive hydrocephalus; L89.156 Pressure-induced deep tissue damage of sacral region; I21.A1 Myocardial infarction type 2; G93.49 Other encephalopathy; E44.1 Mild protein-calorie malnutrition; D68.59 Other primary thrombophilia; L89.623 Pressure ulcer of left heel, stage 3; E87.0 Hyperosmolality and hypernatremia; E87.20 Acidosis, unspecified; N17.9 Acute kidney failure, unspecified; E88.09 Other disorders of plasma-protein metabolism, not elsewhere classified; F29 Unspecified psychosis not due to a substance or known physiological condition; G82.20 Paraplegia, unspecified; Z93.0 Tracheostomy status; I48.0 Paroxysmal atrial fibrillation; G40.909 Epilepsy, unspecified, not intractable, without status epilepticus; I10 Essential (primary) hypertension; R13.10 Dysphagia, unspecified; Z98.2 Presence of cerebrospinal fluid drainage device; Z93.1 Gastrostomy status; Z86.74 Personal history of sudden cardiac arrest; Z87.440 Personal history of urinary (tract) infections; Z86.61 Personal history of infections of the central nervous system; Z98.1 Arthrodesis status; I69.354 Hemiplegia and hemiparesis following cerebral infarction affecting left non-dominant side; M89.8X9 Other specified disorders of bone, unspecified site; D57.3 Sickle-cell trait; D64.9 Anemia, unspecified; Z74.09 Other reduced mobility; N40.0 Benign prostatic hyperplasia without lower urinary tract symptoms; R62.7 Adult failure to thrive; Z68.32 Body mass index [BMI] 32.0-32.9, adult; E66.9 Obesity, unspecified; E83.41 Hypermagnesemia; Z79.51 Long term (current) use of inhaled steroids; Z79.01 Long term (current) use of anticoagulants; Z79.899 Other long term (current) drug therapy; S01.312A Laceration without foreign body of left ear, initial encounter; X58.XXXA Exposure to other specified factors, initial encounter; Y92.9 Unspecified place or not applicable; E87.8 Other disorders of electrolyte and fluid balance, not elsewhere classified; N39.0 Urinary tract infection, site not specified; B19.20 Unspecified viral hepatitis C without hepatic coma; B18.2 Chronic viral hepatitis C; B96.89 Other specified bacterial agents as the cause of diseases classified elsewhere; Z16.35 Resistance to multiple antimicrobial drugs
CPT/HCPCS: 31720; 36415; 71045-TC; 76770-TC; 80048-TC; 80053-TC; 81001; 82533; 82550-TC; 82553; 82570-TC; 83735-TC; 83935-TC; 83970; 84100-TC; 84155; 84165; 84300-TC; 85025-TC; 87081-TC; 87086-TC; 92526; 92611-TC; 94640-TC; 94760-TC; 94762-TC; 94799-TC; 99082-TC; A4223; A4349; A4623; G0378; J1953; J2185; J3490; J7030; J7040; J7050; J7060; L8501